=== PATIENT | male | born 1960 | race Caucasian/White ===

== ENCOUNTER 2021-12-13 16:12 | Inpatient (IN) | payer MEDICARE ==
[2021-12-13] MEDS ORDERED: SODIUM CHLORIDE 0.9% 1,000 ML IV STA ×2 (16:49→16:50)
--- NOTE | 2021-12-13 16:51 | ED Physician Documentation ---
History of Present Illness - Stated complaint Stated Complaint: UNABLE TO WALK/SHIVERS/BACK PX - Chief complaint Chief Complaint: General - Additonal information Additional information: 61-year-old male who has a history most significant for dementia comes to the emergency department for evaluation of intermittent fever for about 1 week as well as cough and right-sided back pain. This gentleman has a history of dementia that has resulted over the last 7 years as he has had at least 7 strokes. He moved to [facility] about 3 weeks ago from [place] so that his family could help care for him. His daughter at the bedside reports that they thought he had a little cold as he developed a cough once he arrived here. He has had no nausea or vomiting or diarrhea but he is gotten progressively weak. Daughter reports that he simply wants to sleep all the time. He has had fevers up to 101.5 at home and has complained of right- sided CVA and back pain. Past medical history is most significant for dementia and hyperlipidemia. Franky hughes denies any anticoagulation. No history of diabetes or hypertension. Daughter reports that he is a DNR. Patient's was at home and has multiple sclerosis is the decision maker Review of Systems Unable to obtain: Dementia, Other (History obtained from daughter) Constitutional: reports: Fever Musculoskeletal: reports: Back pain Neurologic: reports: Generalized weakness PD PAST MEDICAL HISTORY - Allergies Allergies/Adverse Reactions: Allergies Allergy/AdvReac Type Severity Reaction Status Date / Time No Known Drug Allergies Allergy Verified 12/13/21 16:39 PD ED PE EXPANDED - General General: Lethargic - Neck Neck: Supple w/out meningeal sx. No: Adenopathy - Cardiac Cardiac: Regular Rate, Radial strong equal, Pedal strong equal. No: Murmur Present - Respiratory Respiratory: Clear to ausultation deana. No: Distress, Labored - Abdomen Abdomen: Normal Bowel sounds. No: Tender to palpation - Derm Derm: Normal color - Neuro Neuro: Alert and Oriented X 3, CNII-XII intact - GCS Eye Opening: Spontaneous Motor: Obeys Commands Verbal: Oriented Total: 15 Results - Vitals Vitals: Vital Signs - 24 hr 12/13/21 12/13/21 12/13/21 16:34 18:21 19:22 Temperature 38.6 C H Heart Rate 119 H 107 H 97 Respiratory 16 25 H 35 H Rate Blood Pressure 104/64 99/65 103/67 O2 Saturation 95 95 95 Oxygen O2 Source Room air - EKG (time done) 1654 Rate: Rate (enter#) (102) Rhythm: Sinus tachycardia [place]amb[place]: Normal Intervals: Normal DC QRS: Normal Ischemia: Other (borderline repol abnormality) Compare to prior EKG: Old EKG unavailable Computer interpretation: Agree with computer - Labs Labs: Laboratory Tests 12/13/21 12/13/21 12/13/21 17:11 17:11 17:11 WBC 16.1 H RBC 3.58 L Hgb 10.8 L Hct 32.9 L MCV 91.9 MCH 30.2 MCHC 32.8 RDW 12.4 Plt Count 714 H MPV 8.7 Neut # (Auto) 14.2 H Lymph # (Auto) 0.5 L [place] # (Auto) 1.0 Eos # (Auto) 0.0 Baso # (Auto) 0.1 Absolute Nucleated RBC 0.00 Nucleated RBC % 0.0 Sodium 137 Potassium 3.7 Chloride 98 L Carbon Dioxide 28 Anion Gap 11.0 BUN 24 H Creatinine 0.7 Estimated GFR (MDRD) 114 Glucose 125 H Lactic Acid 1.5 Calcium 8.6 Total Bilirubin 0.4 AST 48 H ALT 99 H Alkaline Phosphatase 96 Total Protein 7.4 Albumin 2.5 L Globulin 4.9 H Albumin/Globulin Ratio 0.5 L Urine Color Urine Clarity Urine pH Ur Specific [place] Urine Protein Urine Glucose (UA) Urine Ketones Urine Occult Blood Urine Nitrite Urine Bilirubin Urine Urobilinogen Ur Leukocyte Esterase Urine RBC Urine WBC Ur Squamous Epith Cells Urine Bacteria Urine Casts Urine Mucus Urine Culture Comments SARS-CoV-2 (PCR) 12/13/21 12/13/21 18:20 18:31 WBC RBC Hgb Hct MCV MCH MCHC RDW Plt Count MPV Neut # (Auto) Lymph # (Auto) [place] # (Auto) Eos # (Auto) Baso # (Auto) Absolute Nucleated RBC Nucleated RBC % Sodium Potassium Chloride Carbon Dioxide Anion Gap BUN Creatinine Estimated GFR (MDRD) Glucose Lactic Acid Calcium Total Bilirubin AST ALT Alkaline Phosphatase Total Protein Albumin Globulin Albumin/Globulin Ratio Urine Color DARK YELLOW Urine Clarity HAZY Urine pH 6.0 Ur Specific [place] 1.020 Urine Protein TRACE Urine Glucose (UA) NEGATIVE Urine Ketones TRACE Urine Occult Blood NEGATIVE Urine Nitrite NEGATIVE Urine Bilirubin NEGATIVE Urine Urobilinogen 0.2 (NORMAL) Ur Leukocyte Esterase NEGATIVE Urine RBC 0-5 Urine WBC 0-3 Ur Squamous Epith Cells NONE SEEN Urine Bacteria None Seen Urine Casts 0-2 Course Granular Urine Mucus Few Strands Urine Culture Comments NOT INDICATED SARS-CoV-2 (PCR) DETECTED A - Rads (name of study) abd/pelvis CT Radiology: Final report received (Right lower lobe pulmonary infiltrate with consolidation and pleural effusion. Unremarkable noncontrast CT of the abdomen and pelvis) CT chest Radiology: Final report received (RLL pneumonia) PD MEDICAL DECISION MAKING - ED course Complexity details: reviewed results, re-evaluated patient, considered differential, d/w patient ED course: 61-year-old male presents emergency department for evaluation of 1 week intermittent fevers, increasing general weakness right-sided back pain. He does have a history of pretty significant dementia and moved to the [facility] 3 weeks ago to be with his family. On presentation he is febrile at 38.6 tachycardic at 120. He has soft but normal blood pressures. Blood cultures x2 are pending. He was administered 2 L of crystalloid. Subsequent CT imaging of the chest abdomen pelvis does reveal a right lower lobe pneumonia. He was initiated on ceftriaxone and azithromycin.His daughter indicates to me that he is a DNR though they are okay with IV fluids and antibiotics. Covid screen is pending 1824: I have spoken to Dr. Watson who agrees to accept the patient in admission - Sepsis Event Sepsis Onset Date: 12/13/21 Sepsis Onset Time: 16:41 Current Stage of Sepsis: Sepsis Initial Hypotension: Not hypotensive Possible source of Sepsis: Pulmonary Mental/Cognitive Status: Confused, Lethargic, Other (Baseline dementia) Peripheral Pulse Strength: 2+ Slightly Diminished Peripheral Pulse Location: Pedal Bedside ultrasound performed: No Departure - Departure Disposition: 64 [facility] DC/Xfer Clinical Impression: Sepsis Qualifiers: Sepsis type: sepsis due to unspecified organism Sepsis acute organ dysfunction status: without acute organ dysfunction Qualified Code(s): A41.9 - Sepsis, unspecified organism Right lower lobe pneumonia Qualifiers: Pneumonia type: due to unspecified organism Qualified Code(s): J18.9 - Pneumo oanh, unspecified organism
[2021-12-13 17:21] LABS: BASOPHILS # (AUTO) 0.1 10^3/uL (0.0-0.1); BASOPHILS % (AUTO) 0.4 %; EOSINOPHILS % (AUTO) 0.2 %; HCT - HEMATOCRIT 32.9 % (42.0-52.0); HGB - HEMOGLOBIN 10.8 g/dL (14.0-18.0); LYMPHOCYTES # (AUTO) 0.5 10^3/uL (1.5-3.5); LYMPHOCYTES % (AUTO) 3.3 %; MEAN CORPUSCULAR HEMOGLOBIN 30.2 pg (27.0-31.0); MEAN CORPUSCULAR HGB CONC 32.8 g/dL (32.0-36.0); MEAN CORPUSCULAR VOLUME 91.9 fL (80.0-94.0); MEAN PLATELET VOLUME 8.7 fL (7.4-11.4); MONOCYTES % (AUTO) 6.3 %; NEUTROPHILS # (AUTO) 14.2 10^3/uL (1.5-6.6); NEUTROPHILS % (AUTO) 88.4 %; PLT - PLATELET COUNT 714 10^3/uL (130-450); RED BLOOD COUNT 3.58 10^6/uL (4.70-6.10); RED CELL DISTRIBUTION WIDTH 12.4 % (12.0-15.0); WHITE BLOOD COUNT 16.1 x10^3/uL (4.8-10.8)
[2021-12-13 17:33] LABS: ALBUMIN 2.5 g/dL (3.2-5.5); ALBUMIN/GLOBULIN RATIO 0.5 (1.0-2.2); BILIRUBIN,TOTAL 0.4 mg/dL (0.2-1.0); CALCIUM 8.6 mg/dL (8.5-10.3); CREATININE 0.7 mg/dL (0.6-1.2); POTASSIUM 3.7 mmol/L (3.5-5.0); TOTAL PROTEIN 7.4 g/dL (6.7-8.2)
[2021-12-13] MEDS ORDERED: cefTRIAXone 1 GM in SODIUM CHLORIDE 0.9% MINIBAG 100 ML IV STA (17:56)
[2021-12-13] MEDS ORDERED: AZITHROMYCIN INJ 500 MG in SODIUM CHLORIDE 0.9% 250 ML IV STA (17:56)
[2021-12-13 18:26] LABS: BILIRUBIN,URINE NEGATIVE (NEGATIVE); GLUCOSE, URINE (UA) NEGATIVE (NEGATIVE); KETONES,URINE (UA) TRACE mg/dL (NEGATIVE); LEUKOCYTE ESTERASE, URINE NEGATIVE (NEGATIVE); NITRITE,URINE NEGATIVE (NEGATIVE); OCCULT BLOOD,URINE NEGATIVE (NEGATIVE); PROTEIN,URINE TRACE mg/dL (NEGATIVE); UROBILINOGEN,URINE 0.2 (NORMAL) E.U./dL (NORMAL)
[2021-12-13 18:28] LABS: CLARITY,URINE HAZY (CLEAR)
[2021-12-13 18:42] LABS: BACTERIA,URINE None Seen /HPF (None Seen); MUCUS,URINE Few Strands; RBC,URINE 0-5 /HPF (0-5); SQUAMOUS EPITHELIAL CELL,UR NONE SEEN (<= Few); WBC,URINE 0-3 /HPF (0-3)
--- NOTE | 2021-12-13 18:46 | CT Report ---
PROCEDURE: CT abdomen pelvis without contrast INDICATIONS: right flank pain, fevers, cough TECHNIQUE: Noncontrast 5 mm thick sections acquired from the diaphragms to the symphysis. 5 mm coronal and sagi ttal reformats were then performed. For radiation dose reduction, the following was used: automated exposure control, adjustment of mA and/or kV according to patient size. COMPARISON: None. FINDINGS: Image quality: Excellent. ABDOMEN: Lung bases: Left lower lobe pulmonary infiltrate with consolidation in pleural effusion noted. Left l chun base is clear. Solid organs: Liver and spleen are normal in size. Gallbladder unremarkable. Pancreas is normal in contours. No adrenal nodules. Kidneys are normal in size, without hydronephrosis or nephrolithiasi s. Peritoneum and bowel: Unenhanced bowel loops demonstrate normal wall thickness and caliber. No free fluid or air. Moderate to fecal debris noted throughout the colon . Nodes and vessels: No retroperitoneal or mesenteric adenopathy by size criteria. Aorta and inferior vena cava are normal in caliber. Miscellaneous: No ventral hernias. PELVIS: Genitourinary: Bladder wall thickness is normal. Miscellaneous: No inguinal hernias or adenopathy. Bones: No suspicious bony lesions. No vertebral body compression fractures. IMPRESSION: 1. Right lower lobe pulmonary infiltrate with consolidation and pleural effusion. 2. Unremarkable noncontrast CT of the abdomen and pelvis Reviewed by: Abelardo Bahena MD on 12/13/2021 5:44 PM SCOTT Approved by: Abelardo Bahena MD on 12/13/2021 5:44 PM AKDT Station ID: [id number]
--- NOTE | 2021-12-13 18:48 | CT Report ---
PROCEDURE: CT chest without contrast INDICATIONS: right flank pain; fevers TECHNIQUE: Noncontrast 1mm axial images were acquired from the pulmonary apices to the posterior costophrenic an gles. Axial 5 mm soft tissue kernel reconstructions were performed as well as 8 mm axial MIP and cor onal and sagittal 5 mm reformations. For radiation dose reduction, the following was used: automate d exposure control, adjustment of mA and/or kV according to patient size. COMPARISON: None FINDINGS: Image quality: Excellent. Lungs and pleura: Right lower lobe pulmonary infiltrate associated with consolidation and pleural eff usion extending into the minor fissure. Left lung and pleural spaces clear. Mediastinum: Heart size is normal. Dense atherosclerotic coronary artery vascular calcification pre sent. No pericardial effusion. Reactive but nonenlarged mediastinal lymph nodes present.. Thoracic a uzma and central pulmonary arteries are normal in size. Esophagus is normal in caliber. No hiatal h ernia. Bones and chest wall: No suspicious bony lesions. No vertebral body compression fractures. No axil ary or supraclavicular adenopathy by size criteria. The thyroid is normal in size and there are no incidental findings. Abdomen: Visualized upper abdominal solid organs and bowel loops appear normal in the absence of con trast. IMPRESSION: Right lower lobe pneumonia. Right lower lobe pulmonary infiltrate associated with consolidation and p leural effusion is consistent with pneumonia Reviewed by: Abelardo Bahena MD on 12/13/2021 5:46 PM AKMEET Approved by: Abelardo Bahena MD on 12/13/2021 5:46 PM AKDT Station ID: [id number]
[2021-12-13] MEDS ORDERED: ACETAMINOPHEN 325 MG TABLET PO PRN (19:45)
[2021-12-13] MEDS ORDERED: ONDANSETRON 4 MG/2 ML VIAL IVP PRN (19:45)
[2021-12-13] MEDS ORDERED: SODIUM CHLORIDE FLUSH 0.9% 10 ML SYRINGE IVP PRN (19:45)
[2021-12-13] MEDS ORDERED: HYDROcod/ACETAM 5/325 MG TABLET PO PRN (19:45)
--- NOTE | 2021-12-13 19:51 | HISTORY & PHYSICAL EXAMINATION ---
Chief Complaint - Chief Complaint Chief Complaint: cough and fever History of Present Illness - Admitted From Admitted From:: [facility] ED - History Obtained From Records Reviewed: yes History obtained from: patient's daughter Exam Limitations: dementia, confused - History of Present Illness HPI Comment/Other: Patient is 61-year-old male with medical history significant for dementia, hyperlipidemia and depression who presented to the ED with cough and chills. His symptoms started initially 3 weeks ago with a cold. He was evaluated and tested for COVID-19 at the time and was noted to be negative. However interm ittently he would spike fever at home as high as 101.4. This usually resolved with Tylenol and was intermittent so no further medical care was sought. Today with the patient's daughter returned home from work she noted he was shivering and complained of significant back pain. The patient requested to be brought to the hospital for evaluation. In the ED he had a temperature of 38.6 C. Further work-up included CBC which showed a white blood cell count of 16.1. He also had a chest x-ray done which showed right lower lobe pneumonia. Finally he tested positive for COVID. As a result he was presented for admission for further treatment. The patient recently moved to [facility] to live with his daughter from [place]. As a result of the dementia and current confusion this history was provided by his daughter. He is resting comfortably in bed. He is awake and alert and oriented to self mainly. He does not have chest pain, dyspnea, abdominal pain, nausea or vomiting. History - Past Medical History Cardiovascular: reports: High cholesterol Neuro: reports: Dementia Psych: reports: Depression - Past Surgical History Other past surgical history: No surgical history - Family & Social History Family History Comment/Other: Since parents had a significant history of alcohol abuse and cirrhosis. Living arrangement: At home Living Situation: With family Social History Notes: He recently moved from [place] to [facility] to live with his daughter. He chews tobacco. He does not consume alcohol or use recrea tional substances. - POLST Patient has POLST: No POLST Status: Full Code Meds/Allgy - Allergies Allergies/Adverse Reactions: Allergies Allergy/AdvReac Type Severity Reaction Status Date / Time No Known Drug Allergies Allergy Verified 12/13/21 16:39 Review of Systems - Constitutional Constitutional: reports: Fever, Chills, Poor appetite. denies: Fatigue - Eyes Eyes: denies: Vision loss, Dipolpia - Ears, Nose & Throat Ears, Nose & Throat: denies: Ear pain, Sore throat - Cardiovascular Cariovascular: denies: Irregular heart rate, Palpitations, Chest pain, Lightheadedness, Syncope, Exertional dyspnea - Respiratory Respiratory: reports: Cough. denies: Wheezing, SOB at rest, SOB with exertion - Gastrointestinal Gastrointestinal: denies: Abdominal pain, Abdominal distention, Constipation, Di arrhea, Nausea, Vomiting - Genitourinary Genitourinary: denies: Dysuria, Frequency, Urgency, Hematuria - Musculoskeletal Musculoskeletal: denies: Muscle pain, Back pain - Integumentary Integumentary: denies: Rash, Pruritis, Lesions, Dryness - Neurological Neurological: denies: General weakness, Focal weakness, Headache, Dizziness - Psychiatric Psychiatric: denies: Depression, Anxiety - Endocrine Endocrine: denies: Polyuria, Polydypsia - Hematologic/Lymphatic Hematologic/Lymphatic: denies: Anemia, Bruising, Petechiae Prior Level of Functionality: Patient requires some assistance and reminders about activities of daily living Without supervision he would often forget to eat or shower. Exam - Vital Signs Vital Signs: Vital Signs x48h Temp Pulse Resp BP Pulse Ox 12/13/21 19:22 97 35 H 103/67 95 12/13/21 18:21 107 H 25 H 99/65 95 12/13/21 16:34 38.6 C H 119 H 16 104/64 95 - Physical Exam General Appearance: positive: No acute distress, Alert, Other (awake but mainly oriented to self) Eyes Bilateral: positive: PERRL, EOMI ENT: positive: No signs of dehydration Neck: positive: No JVD, Trachea midline Respiratory: positive: Chest non-tender, No respiratory distress, Breath sounds nml Cardiovascular: positive: Regular rate & rhythm, No murmur Abdomen: positive: Non-tender, No organomegaly, Nml bowel sounds, No distention. negative: Guarding, Rebound Back: positive: Nml inspection Skin: positive: Color nml, No rash, Warm, Dry Extremities: positive: Non-tender, Full ROM, Nml appearance, No pedal edema Neurologic/Psychiatric: positive: Oriented x3, Mood/affect nml Sepsis Event Note (H) - Evaluation Possible source of Sepsis: positive: Pulmonary Conclusion/Plan - Problem List (1) Right lower lobe pneumonia Conclusion/Plan: CT chest shows right lower lobe pneumonia. WBC 16.1, temperature 38.6 C. Oxygen saturation 95% on room air. Blood cultures drawn. Patient started on Rocephin and azithromycin. Qualifiers: Pneumonia type: due to unspecified organism Qualified Code(s): J18.9 - Pneumonia, unspecified organism (2) COVID-19 Conclusion/Plan: Patient was positive for COVID-19. Oxygen saturation is 95% on room air. Respiratory rate 35. On Rocephin and azithromycin. Will order Decadron 6 mg IV daily. - Lab Results Fish Bones: 12/13/21 17:11 12/13/21 17:11 Core Measures - Anticipated LOS I expect patient to be DC'd or transferred within 96 hours.: Yes - DVT/VTE - Prophylaxis VTE/DVT Device ordered at admit?: Yes VTE/DVT Prophylaxis med ordered at admit?: Yes
[2021-12-14 05:21] LABS: BASOPHILS # (AUTO) 0.1 10^3/uL (0.0-0.1); BASOPHILS % (AUTO) 0.4 %; EOSINOPHILS % (AUTO) 0.3 %; HCT - HEMATOCRIT 31.1 % (42.0-52.0); LYMPHOCYTES # (AUTO) 0.8 10^3/uL (1.5-3.5); LYMPHOCYTES % (AUTO) 5.9 %; MEAN CORPUSCULAR HEMOGLOBIN 29.9 pg (27.0-31.0); MEAN CORPUSCULAR HGB CONC 32.2 g/dL (32.0-36.0); MEAN CORPUSCULAR VOLUME 92.8 fL (80.0-94.0); MEAN PLATELET VOLUME 8.8 fL (7.4-11.4); MONOCYTES # (AUTO) 1.2 10^3/uL (0.0-1.0); NEUTROPHILS # (AUTO) 11.2 10^3/uL (1.5-6.6); NEUTROPHILS % (AUTO) 83.3 %; PLT - PLATELET COUNT 629 10^3/uL (130-450); RED BLOOD COUNT 3.35 10^6/uL (4.70-6.10); RED CELL DISTRIBUTION WIDTH 12.7 % (12.0-15.0); WHITE BLOOD COUNT 13.5 x10^3/uL (4.8-10.8)
[2021-12-14 05:27] LABS: CALCIUM 8.1 mg/dL (8.5-10.3); CREATININE 0.6 mg/dL (0.6-1.2); POTASSIUM 3.7 mmol/L (3.5-5.0)
[2021-12-14] MEDS: SODIUM CHLORIDE FLUSH 0.9% 10 ML SYRINGE IVP SCH ×3 (05:37→18:08)
[2021-12-14] MEDS: cefTRIAXone 1 GM in SODIUM CHLORIDE 0.9% MINIBAG 100 ML IV SCH (09:35)
[2021-12-14] MEDS: DEXAMETHASONE 4 MG/ML VIAL IVP SCH (09:37)
[2021-12-14] MEDS: ENOXAPARIN 40 MG/0.4 ML SYRINGE SUBQ SCH (09:41)
[2021-12-14] MEDS ORDERED: SODIUM CHLORIDE 0.9% 1,000 ML IV SCH (10:00)
[2021-12-14] MEDS: AZITHROMYCIN INJ 500 MG in SODIUM CHLORIDE 0.9% 250 ML IV SCH (10:27)
--- NOTE | 2021-12-14 13:52 | PROVIDER PROGRESS NOTE ---
Assessment/Plan - Problem List (1) Sepsis Qualifiers: Sepsis type: sepsis due to unspecified organism Sepsis acute organ dysfunction status: without acute organ dysfunction Qualified Code(s): A41.9 - Sepsis, unspecified organism Assessment/Plan: He had tachycardia, elevated white blood count and fever. The white count has improved from 16-13 and he is no longer tachycardic and is afebrile. Continue to treat the underlying problem, the lobar pneumonia and treat COVID symptomatically (2) Right lower lobe pneumonia Conclusion/Plan: CT chest shows right lower lobe pneumonia. WBC was 16.1, temperature 38.6 C. Oxygen saturation 95% on room air. Blood cultures drawn. Continue patient on Rocephin and azithromycin. Qualifiers: Pneumonia type: due to unspecified organism Qualified Code(s): J18.9 - Pneumonia, unspecified organism (3) COVID-19 Conclusion/Plan: Patient was positive for COVID-19. Oxygen saturation is 95% on room air. Respiratory rate was 35 and has improved. He is on Decadron 6 mg IV daily. There are no qualifications to start Remdesivir since he is not desaturating (4) Dementia Conclusion/Plan: He does not know his medications, there is nothing it reconciled by pharmacy The daughter told his nurse that the patient eats very little and often pockets his food and pills in his cheek. He mostly just sits in his chair all day sleeps on and off all day. Will order a minced and moist diet and for the patient to be fed and fluids to be offered. He bladder scanned 566 ml and did not understand how to use a urinal. Will order to walk him to the BR for urination or BMs. We may consider PT and OT evaluations, but today he is very fatigued, possibly from his acute infection and the COVID, will let him sleep. - Current Meds Current Meds: Current Medications Generic Name Dose Route Start Last Admin Trade Name Freq PRN Reason Stop Dose Admin Dexamethasone 6 mg 12/14/21 09:00 12/14/21 09:37 Dexamethasone 4 Mg/Ml Vial IVP 12/22/21 09:01 6 mg DAILY PAT Administration Enoxaparin Sodium 40 mg 12/14/21 09:00 12/14/21 09:41 Enoxaparin 40 Mg/0.4 Ml Syringe SUBQ 40 mg DAILY PAT Administration Azithromycin 500 mg/ Sodium 250 mls @ 250 mls/hr 12/14/21 09:00 12/14/21 11:30 Chloride IV 12/15/21 09:59 Infused DAILY PAT Infusion Ceftriaxone Sodium 1 gm/ 100 mls @ 200 mls/hr 12/14/21 09:00 12/14/21 10:13 Sodium Chloride IV Infused DAILY PAT Infusion Sodium Chloride 1,000 mls @ 83.333 mls/hr 12/14/21 10:00 12/14/21 11:30 Normal Saline 0.9% IV 83.333 mls/hr .Q12H PAT Infusion Sodium Chloride 10 ml 12/14/21 01:00 12/14/21 09:37 Sodium Chloride Flush 0.9% 10 Ml Syringe IVP 10 ml 0100,0900,1700 PAT Administration - Lab Result Fish Bone Diagrams: 12/14/21 05:00 12/14/21 05:00 - Additional Planning My Orders: My Active Orders 12/14/21 10:00 Sodium Chloride 0.9% [Normal Saline 0.9%] 1,000 ml IV 83.333 mls/hr 12/14/21 13:48 Miscellaenous Nursing Order [RC] QSHIFT 12/14/21 Dinner DIET [Dysphagia - Minced and Moist] [DIET] Subjective - Subjective Patient Reports: Resting Comfortably Nursing Reports: Other (Needs to be fed, needs to be walked to bathroom, per RN) Objective Vital Signs: Vital Signs - 24 hr 12/13/21 12/13/21 12/13/21 16:34 18:21 19:22 Temperature 38.6 C H Heart Rate 119 H 107 H 97 Heart Rate [ Brachial] Respiratory 16 25 H 35 H Rate Blood Pressure 104/64 99/65 103/67 Blood Pressure [Left Brachial artery] O2 Saturation 95 95 95 12/13/21 12/13/21 12/14/21 20:30 21:00 00:00 Temperature 37.0 C 36.6 C Heart Rate 100 Heart Rate [ 65 62 Brachial] Respiratory 17 12 14 Rate Blood Pressure 102/70 Blood Pressure 105/61 104/59 L [Left Brachial artery] O2 Saturation 98 97 96 12/14/21 12/14/21 05:39 08:00 Temperature 36.4 C L 36.8 C Heart Rate Heart Rate [ 88 93 Brachial] Respiratory 32 H 22 Rate Blood Pressure Blood Pressure 108/61 94/57 L [Left Brachial artery] O2 Saturation 94 94 Oxygen O2 Source Room air I&O (Last 24 Hrs): Intake and Output Totals x24h 12/12/21 12/13/21 12/14/21 23:59 23:59 23:59 Intake Total 2350 350 Output Total 450 Balance 2350 -100 General: Other ((exam done remotely). He is lethargic but awakens to his name.) HEENT: Atraumatic Neck: Supple Neuro: Alert, Disoriented, Non Focal Cardiovascular: Regular rate Respiratory: No respiratory distress Abdomen: Soft Extremities: No edema - Results Results: Laboratory Results WBC 13.5 x10^3/uL (4.8-10.8) H 12/14/21 05:00 RBC 3.35 10^6/uL (4.70-6.10) L 12/14/21 05:00 Hgb 10.0 g/dL (14.0-18.0) L 12/14/21 05:00 Hct 31.1 % (42.0-52.0) L 12/14/21 05:00 MCV 92.8 fL (80.0-94.0) 12/14/21 05:00 MCH 29.9 pg (27.0-31.0) 12/14/21 05:00 MCHC 32.2 g/dL (32.0-36.0) 12/14/21 05:00 RDW 12.7 % (12.0-15.0) 12/14/21 05:00 Plt Count 629 10^3/uL (130-450) H 12/14/21 05:00 MPV 8.8 fL (7.4-11.4) 12/14/21 05:00 Neut # (Auto) 11.2 10^3/uL (1.5-6.6) H 12/14/21 05:00 Lymph # (Auto) 0.8 10^3/uL (1.5-3.5) L 12/14/21 05:00 [place] # (Auto) 1.2 10^3/uL (0.0-1.0) H 12/14/21 05:00 Eos # (Auto) 0.0 10^3/uL (0.0-0.7) 12/14/21 05:00 Baso # (Auto) 0.1 10^3/uL (0.0-0.1) 12/14/21 05:00 Absolute Nucleated RBC 0.00 x10^3/uL 12/14/21 05:00 Nucleated RBC % 0.0 /100WBC 12/14/21 05:00 Sodium 139 mmol/L (135-145) 12/14/21 05:00 Potassium 3.7 mmol/L (3.5-5.0) 12/14/21 05:00 Chloride 103 mmol/L (101-111) 12/14/21 05:00 Carbon Dioxide 26 mmol/L (21-32) 12/14/21 05:00 Anion Gap 10.0 (6-13) 12/14/21 05:00 BUN 17 mg/dL (6-20) 12/14/21 05:00 Creatinine 0.6 mg/dL (0.6-1.2) 12/14/21 05:00 Estimated GFR (MDRD) 136 (>89) 12/14/21 05:00 Glucose 117 mg/dL (70-100) H 12/14/21 05:00 Lactic Acid 1.5 mmol/L (0.5-2.2) 12/13/21 17:11 Calcium 8.1 mg/dL (8.5-10.3) L 12/14/21 05:00 Total Bilirubin 0.4 mg/dL (0.2-1.0) 12/13/21 17:11 AST 48 IU/L (10-42) H 12/13/21 17:11 ALT 99 IU/L (10-60) H 12/13/21 17:11 Alkaline Phosphatase 96 IU/L (42-121) 12/13/21 17:11 Total Protein 7.4 g/dL (6.7-8.2) 12/13/21 17:11 Albumin 2.5 g/dL (3.2-5.5) L 12/13/21 17:11 Globulin 4.9 g/dL (2.1-4.2) H 12/13/21 17:11 Albumin/Globulin Ratio 0.5 (1.0-2.2) L 12/13/21 17:11 Urine Color DARK YELLOW 12/13/21 18:20 Urine Clarity HAZY (CLEAR) 12/13/21 18:20 Urine pH 6.0 PH (5.0-7.5) 12/13/21 18:20 Ur Specific [place] 1.020 (1.002-1.030) 12/13/21 18:20 Urine Protein TRACE mg/dL (NEGATIVE) 12/13/21 18:20 Urine Glucose (UA) NEGATIVE mg/dL (NEGATIVE) 12/13/21 18:20 Urine Ketones TRACE mg/dL (NEGATIVE) 12/13/21 18:20 Urine Occult Blood NEGATIVE (NEGATIVE) 12/13/21 18:20 Urine Nitrite NEGATIVE (NEGATIVE) 12/13/21 18:20 Urine Bilirubin NEGATIVE (NEGATIVE) 12/13/21 18:20 Urine Urobilinogen 0.2 (NORMAL) E.U./dL (NORMAL) 12/13/21 18:20 Ur Leukocyte Esterase NEGATIVE (NEGATIVE) 12/13/21 18:20 Urine RBC 0-5 /HPF (0-5) 12/13/21 18:20 Urine WBC 0-3 /HPF (0-3) 12/13/21 18:20 Ur Squamous Epith Cells NONE SEEN (<= Few) 12/13/21 18:20 Urine Bacteria None Seen /HPF (None Seen) 12/13/21 18:20 Urine Casts 0-2 Hyaline Casts /LPF0-2 Course Granular /LPF 12/13/21 18:20 Urine Casts 0-2 Hyaline Casts /LPF0-2 Course Granular /LPF 12/13/21 18:20 Urine Mucus Few Strands 12/13/21 18:20 Urine Culture Comments NOT INDICATED 12/13/21 18:20 SARS-CoV-2 (PCR) DETECTED A 12/13/21 18:31 Sepsis Event Note (H) - Evaluation Possible source of Sepsis: positive: Pulmonary
[2021-12-15] MEDS: SODIUM CHLORIDE FLUSH 0.9% 10 ML SYRINGE IVP SCH ×3 (01:55→17:41)
[2021-12-15] MEDS: SODIUM CHLORIDE 0.9% 1,000 ML IV SCH ×2 (01:55→13:46)
[2021-12-15 05:06] LABS: BASOPHILS % (AUTO) 0.1 %; EOSINOPHILS % (AUTO) 0.2 %; HCT - HEMATOCRIT 28.4 % (42.0-52.0); HGB - HEMOGLOBIN 9.3 g/dL (14.0-18.0); LYMPHOCYTES % (AUTO) 7.9 %; MEAN CORPUSCULAR HEMOGLOBIN 30.1 pg (27.0-31.0); MEAN CORPUSCULAR HGB CONC 32.7 g/dL (32.0-36.0); MEAN CORPUSCULAR VOLUME 91.9 fL (80.0-94.0); MEAN PLATELET VOLUME 9.1 fL (7.4-11.4); MONOCYTES # (AUTO) 1.1 10^3/uL (0.0-1.0); MONOCYTES % (AUTO) 8.7 %; NEUTROPHILS # (AUTO) 10.2 10^3/uL (1.5-6.6); NEUTROPHILS % (AUTO) 81.9 %; PLT - PLATELET COUNT 586 10^3/uL (130-450); RED BLOOD COUNT 3.09 10^6/uL (4.70-6.10); RED CELL DISTRIBUTION WIDTH 12.6 % (12.0-15.0); WHITE BLOOD COUNT 12.5 x10^3/uL (4.8-10.8)
[2021-12-15 05:16] LABS: CREATININE 0.5 mg/dL (0.6-1.2); POTASSIUM 3.5 mmol/L (3.5-5.0)
[2021-12-15] MEDS: DEXAMETHASONE 4 MG/ML VIAL IVP SCH (08:36)
[2021-12-15] MEDS: cefTRIAXone 1 GM in SODIUM CHLORIDE 0.9% MINIBAG 100 ML IV SCH (08:43)
[2021-12-15] MEDS: AZITHROMYCIN INJ 500 MG in SODIUM CHLORIDE 0.9% 250 ML IV SCH (08:45)
--- NOTE | 2021-12-15 09:24 | PHARMACY PROGRESS NOTE ---
- Best Possible Medication History Admit Date and Time: 12/13/211944 Processed by: Pharmacy Medication History completed: Yes Patient Interview: Pt unable to participate Secondary Source(s): Written medication list, Other family member As the person ultimately responsible for medication therapy, providers are able to order a medication from an existing home medication list in [facility] via the "Reconcile Routine" prior to Confirmation of that medication by biomedical equipment support specialist. Such practice is discouraged except when the physician, in their clinical judgment, deems that a medical need exists for a medication without regard to previous use.
[2021-12-15] MEDS: ENOXAPARIN 40 MG/0.4 ML SYRINGE SUBQ SCH (10:25)
[2021-12-15] MEDS: RIVASTIGMINE 1.5 MG CAPSULE PO SCH ×2 (10:33→23:47)
--- NOTE | 2021-12-15 12:12 | PROVIDER PROGRESS NOTE ---
Assessment/Plan - Problem List (1) Right lower lobe pneumonia Qualifiers: Pneumonia type: due to unspecified organism Qualified Code(s): J18.9 - Pneumonia, unspecified organism Assessment/Plan: CT chest showed a right lower lobe pneumonia, WBC was 16.1, temperature 38.6 C. Oxygen saturation 95% on room air. Blood cultures were drawn and are neg to date. Continue patient on empiric iv Rocephin and azithromycin. (2) COVID-19 Conclusion/Plan: Patient was positive for COVID-19 in the ED. Oxygen saturation remains good on room air. Respiratory rate has improved. He is on Decadron 6 mg IV daily. There are no qualifications to start Remdesivir since he is not desaturating (3) Hypotension Conclusion/Plan: Blood pressure is low today, running about 90 systolic, despite having been on 2.5 days of iv fluids. But he has had poor po intake for many days, mostly sleep s (per daughter's report to his RN). Will increase IV rate from 83.33 cc/hr to 100 cc/hr Med list was reconciled today and he is not on any blood pressure medications. (4) Dementia with behavioral disturbances Conclusion/Plan: This morning, he was less lethargic and was able to walk to the bathroom, where he tried to punch his nurse and then wanted to punch the wall. I spoke to the daughter, Nicolle Scruggs, by phone today. She tells me that this patient with advanced dementia was taking care of his , who has multiple sclerosis, is bedbound and only has the use of her left arm. They lived in [place]. The patient drank unknown amounts of alcohol and chewed tobacco. When this patient was picked up by police for driving while intoxicated, a neighbor called Nicolle and said that her parents need caregiving. For this reason, the patient and his have been moved in to live with Nicolle and her , 3 weeks ago. He has no PCP yet. Yesterday the daughter told our RN that the patient mostly sleeps all day, occasionally needs to be fed or prompted to chew. Today the daughter told me about his rare agitation (bipolar mood swings) for which he is on treatment with Zoloft and Alonzopine ODT. We ordered a minced and moist diet and for the patient to be fed and fluids to be offered, if he needs. However today the patient is awake, not as sleepy, sat up in a chair to feed himself breakfast. Will restart his dementia treatment of rivastigmine using oral meds (we do not have the patch on formulary here and the daughter said he would tend to peel off the patch anyway). We may consider PT and OT evaluations. (5) Bipolar Conclusion/Plan: Today the daughter told me about his rare agitation (bipolar mood swings) for which he is on treatment with Zoloft and Alonzopine ODT. Will restart these. (6) Sepsis Conclusion/Plan: Resolved. He had tachycardia, elevated white blood count and fever. The white count has improved and he is no longer tachycardic and is afebrile. - Current Meds Current Meds: Current Medications Generic Name Dose Route Start Last Admin Trade Name Freq PRN Reason Stop Dose Admin Dexamethasone 6 mg 12/14/21 09:00 12/15/21 08:36 Dexamethasone 4 Mg/Ml Vial IVP 12/22/21 09:01 6 mg DAILY PAT Administration Enoxaparin Sodium 40 mg 12/14/21 09:00 12/15/21 10:25 Enoxaparin 40 Mg/0.4 Ml Syringe SUBQ Not Given DAILY PAT Ceftriaxone Sodium 1 gm/ 100 mls @ 200 mls/hr 12/14/21 09:00 12/15/21 09:33 Sodium Chloride IV Infused DAILY PAT Infusion Sodium Chloride 1,000 mls @ 100 mls/hr 12/15/21 01:22 12/15/21 10:33 Normal Saline 0.9% IV 100 mls/hr .Q10H PAT Infusion Rivastigmine Tartrate 1.5 mg 12/15/21 11:00 12/15/21 10:33 Rivastigmine 1.5 Mg Capsule PO 1.5 mg BID PAT Administration Sodium Chloride 10 ml 12/14/21 01:00 12/15/21 08:37 Sodium Chloride Flush 0.9% 10 Ml Syringe IVP 10 ml 0100,0900,1700 PAT Administration - Lab Result Fish Bone Diagrams: 12/15/21 04:35 12/15/21 04:35 - Additional Planning My Orders: My Active Orders 12/14/21 13:48 Miscellaenous Nursing Order [RC] QSHIFT 12/14/21 Dinner DIET [Dysphagia - Minced and Moist] [DIET] 12/15/21 09:08 Telemetry-Discontinue [RC] .ONCE 12/15/21 11:00 Rivastigmine [Exelon] 1.5 mg PO BID Subjective - Subjective Patient Reports: Resting Comfortably Nursing Reports: Other (He had more energy, pulled off his telemetry leads, and tried to punch his nurse.) Objective Vital Signs: Vital Signs - 24 hr 12/14/21 12/14/21 12/14/21 15:03 16:00 19:48 Temperature 36.8 C 36.5 C 36.4 C L Heart Rate 93 Heart Rate [ 73 98 Brachial] Respiratory 22 20 20 Rate Blood Pressure 88/58 L 81/45 L [Left Brachial artery] Blood Pressure [Right Brachial artery] O2 Saturation 94 93 95 12/14/21 12/15/21 12/15/21 23:46 08:00 08:34 Temperature 36.4 C L Heart Rate Heart Rate [ 76 74 Brachial] Respiratory 24 20 Rate Blood Pressure 92/50 L [Left Brachial artery] Blood Pressure 86/51 L 90/56 L [Right Brachial artery] O2 Saturation 95 95 12/15/21 08:35 Temperature 36.4 C L Heart Rate Heart Rate [ Brachial] Respiratory Rate Blood Pressure [Left Brachial artery] Blood Pressure [Right Brachial artery] O2 Saturation Oxygen O2 Source Room air I&O (Last 24 Hrs): Intake and Output Totals x24h 12/13/21 12/14/21 12/15/21 23:59 23:59 23:59 Intake Total 2350 510 2271.667 Output Total 450 Balance 2350 60 2271.667 General: Alert ((exam done remotely)) HEENT: Mucous membr. moist/pink Neck: Supple Neuro: Alert, Other (Poor memory) Cardiovascular: Regular rate Respiratory: No respiratory distress Abdomen: Soft Extremities: No edema - Results Results: Laboratory Results WBC 12.5 x10^3/uL (4.8-10.8) H 12/15/21 04:35 RBC 3.09 10^6/uL (4.70-6.10) L 12/15/21 04:35 Hgb 9.3 g/dL (14.0-18.0) L 12/15/21 04:35 Hct 28.4 % (42.0-52.0) L 12/15/21 04:35 MCV 91.9 fL (80.0-94.0) 12/15/21 04:35 MCH 30.1 pg (27.0-31.0) 12/15/21 04:35 MCHC 32.7 g/dL (32.0-36.0) 12/15/21 04:35 RDW 12.6 % (12.0-15.0) 12/15/21 04:35 Plt Count 586 10^3/uL (130-450) H 12/15/21 04:35 MPV 9.1 fL (7.4-11.4) 12/15/21 04:35 Neut # (Auto) 10.2 10^3/uL (1.5-6.6) H 12/15/21 04:35 Lymph # (Auto) 1.0 10^3/uL (1.5-3.5) L 12/15/21 04:35 [place] # (Auto) 1.1 10^3/uL (0.0-1.0) H 12/15/21 04:35 Eos # (Auto) 0.0 10^3/uL (0.0-0.7) 12/15/21 04:35 Baso # (Auto) 0.0 10^3/uL (0.0-0.1) 12/15/21 04:35 Absolute Nucleated RBC 0.00 x10^3/uL 12/15/21 04:35 Nucleated RBC % 0.0 /100WBC 12/15/21 04:35 Sodium 139 mmol/L (135-145) 12/15/21 04:35 Potassium 3.5 mmol/L (3.5-5.0) 12/15/21 04:35 Chloride 105 mmol/L (101-111) 12/15/21 04:35 Carbon Dioxide 25 mmol/L (21-32) 12/15/21 04:35 Anion Gap 9.0 (6-13) 12/15/21 04:35 BUN 18 mg/dL (6-20) 12/15/21 04:35 Creatinine 0.5 mg/dL (0.6-1.2) L 12/15/21 04:35 Estimated GFR (MDRD) 168 (>89) 12/15/21 04:35 Glucose 124 mg/dL (70-100) H 12/15/21 04:35 Lactic Acid 1.5 mmol/L (0.5-2.2) 12/13/21 17:11 Calcium 8.0 mg/dL (8.5-10.3) L 12/15/21 04:35 Magnesium 2.1 mg/dL (1.7-2.8) 12/15/21 04:35 Total Bilirubin 0.4 mg/dL (0.2-1.0) 12/13/21 17:11 AST 48 IU/L (10-42) H 12/13/21 17:11 ALT 99 IU/L (10-60) H 12/13/21 17:11 Alkaline Phosphatase 96 IU/L (42-121) 12/13/21 17:11 Total Protein 7.4 g/dL (6.7-8.2) 12/13/21 17:11 Albumin 2.5 g/dL (3.2-5.5) L 12/13/21 17:11 Globulin 4.9 g/dL (2.1-4.2) H 12/13/21 17:11 Albumin/Globulin Ratio 0.5 (1.0-2.2) L 12/13/21 17:11 Urine Color DARK YELLOW 12/13/21 18:20 Urine Clarity HAZY (CLEAR) 12/13/21 18:20 Urine pH 6.0 PH (5.0-7.5) 12/13/21 18:20 Ur Specific [place] 1.020 (1.002-1.030) 12/13/21 18:20 Urine Protein TRACE mg/dL (NEGATIVE) 12/13/21 18:20 Urine Glucose (UA) NEGATIVE mg/dL (NEGATIVE) 12/13/21 18:20 Urine Ketones TRACE mg/dL (NEGATIVE) 12/13/21 18:20 Urine Occult Blood NEGATIVE (NEGATIVE) 12/13/21 18:20 Urine Nitrite NEGATIVE (NEGATIVE) 12/13/21 18:20 Urine Bilirubin NEGATIVE (NEGATIVE) 12/13/21 18:20 Urine Urobilinogen 0.2 (NORMAL) E.U./dL (NORMAL) 12/13/21 18:20 Ur Leukocyte Esterase NEGATIVE (NEGATIVE) 12/13/21 18:20 Urine RBC 0-5 /HPF (0-5) 12/13/21 18:20 Urine WBC 0-3 /HPF (0-3) 12/13/21 18:20 Ur Squamous Epith Cells NONE SEEN (<= Few) 12/13/21 18:20 Urine Bacteria None Seen /HPF (None Seen) 12/13/21 18:20 Urine Casts 0-2 Hyaline Casts /LPF0-2 Course Granular /LPF 12/13/21 18:20 Urine Casts 0-2 Hyaline Casts /LPF0-2 Course Granular /LPF 12/13/21 18:20 Urine Mucus Few Strands 12/13/21 18:20 Urine Culture Comments NOT INDICATED 12/13/21 18:20 SARS-CoV-2 (PCR) DETECTED A 12/13/21 18:31 Sepsis Event Note (H) - Evaluation Possible source of Sepsis: positive: Pulmonary
--- NOTE | 2021-12-15 13:28 | ADVANCE CARE PLANNING NOTE ---
Advance Care Planning - Planning Encounter Date: 12/15/21 Time: 13:15 Purpose: To establish CODE BLUE status Parties in Attendance: I spoke to the patient's by phone and daughter, Nicolle, all on speaker phone. Decisional Capacity of the Patient: He has advanced dementia, and cannot make any decisions for himself. 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 - Encounter Subjective/Patient's Story: The patient lived with his until recently in [place]. He drank unknown amounts of alcohol, and chewed tobacco daily. Patient has a history of dementia and has been on meds for dementia with behavioral disturbances that cause bipolar symptoms. Several weeks ago he was arrested for driving while intoxicated. A friend of the family called his daughter who lives here on [facility] [address], and reported that the parents need caregiving. 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 The daughter has brought both parents to live with her and her in their house. They have lived with [facility] for 3 weeks now. The daughter describes that she stopped the fsther from having any further alcohol use and any chewing tobacco "cold turkey". The daughter reports that approximately once a month the father is aggressive and agitated. Overall his current medications keep him stable however. Objective/Medical Story: Patient lives in his daughter's house on [facility], moved here along with his . He has had weakness, intermittent fevers and malaise for about 3 weeks. Because of continued weakness and worsening confusion, he was brought to the emergency room. He has been diagnosed with positive COVID and a lobar pneumonia. He was very obtunded on presentation, he is started to get IV fluids and treatment with antibiotics. He has minimal COVID symptoms, is not desaturating and chest x-ray does not show any opacities. Today he is more alert, was able to walk to the bathroom and is being aggressive, tried to punch his nurse and then tried to punch the wall. Goals of Care: Comfort is the primary goal. The said that she wants everything done. But after we discussed what CPR, defibrillation and a ventilator entails, the 's dated that she wants him to be a DNR/DNI. Plan: Will change CODE STATUS from full code to DNR/DNI. Code Status: Do Not Attempt Resuscitation Time spent on advance care plannin min
[2021-12-15] MEDS: SERTRALINE 50 MG TABLET PO SCH (13:46)
[2021-12-15] MEDS: DIVALPROEX DR 125 MG TABLET PO SCH (23:47)
[2021-12-15] MEDS: ATORVASTATIN 10 MG TABLET PO SCH (23:48)
[2021-12-15] MEDS: OLANZapine ODT 5 MG TABLET TL SCH (23:48)
[2021-12-16] MEDS: SODIUM CHLORIDE FLUSH 0.9% 10 ML SYRINGE IVP SCH ×3 (04:52→16:25)
[2021-12-16] MEDS: SODIUM CHLORIDE 0.9% 1,000 ML IV SCH ×3 (04:52→16:25)
[2021-12-16 05:27] LABS: BASOPHILS % (AUTO) 0.2 %; EOSINOPHILS % (AUTO) 0.3 %; HCT - HEMATOCRIT 26.5 % (42.0-52.0); HGB - HEMOGLOBIN 8.7 g/dL (14.0-18.0); LYMPHOCYTES # (AUTO) 1.4 10^3/uL (1.5-3.5); LYMPHOCYTES % (AUTO) 10.9 %; MEAN CORPUSCULAR HEMOGLOBIN 30.2 pg (27.0-31.0); MEAN CORPUSCULAR HGB CONC 32.8 g/dL (32.0-36.0); MONOCYTES % (AUTO) 7.6 %; NEUTROPHILS # (AUTO) 10.2 10^3/uL (1.5-6.6); PLT - PLATELET COUNT 535 10^3/uL (130-450); RED BLOOD COUNT 2.88 10^6/uL (4.70-6.10); RED CELL DISTRIBUTION WIDTH 12.7 % (12.0-15.0); WHITE BLOOD COUNT 12.8 x10^3/uL (4.8-10.8)
[2021-12-16 05:35] LABS: CALCIUM 7.8 mg/dL (8.5-10.3); CREATININE 0.6 mg/dL (0.6-1.2); POTASSIUM 3.6 mmol/L (3.5-5.0)
[2021-12-16] MEDS: DEXAMETHASONE 4 MG/ML VIAL IVP SCH (08:50)
[2021-12-16] MEDS: DIVALPROEX DR 125 MG TABLET PO SCH ×2 (08:54→20:02)
[2021-12-16] MEDS: RIVASTIGMINE 1.5 MG CAPSULE PO SCH ×2 (08:55→20:02)
[2021-12-16] MEDS: SERTRALINE 50 MG TABLET PO SCH (08:55)
[2021-12-16] MEDS: CYANOCOBALAMIN 500 MCG TABLET PO SCH (08:55)
[2021-12-16] MEDS: MULTIVITAMIN TABLET PO SCH (08:55)
[2021-12-16] MEDS: FOLIC ACID 1 MG TABLET PO SCH (08:55)
[2021-12-16] MEDS: cefTRIAXone 1 GM in SODIUM CHLORIDE 0.9% MINIBAG 100 ML IV SCH (09:09)
[2021-12-16] MEDS: ENOXAPARIN 40 MG/0.4 ML SYRINGE SUBQ SCH (09:12)
--- NOTE | 2021-12-16 12:50 | PROVIDER PROGRESS NOTE ---
Assessment/Plan - Problem List (1) Right lower lobe pneumonia Qualifiers: Pneumonia type: due to unspecified organism Qualified Code(s): J18.9 - Pneumonia, unspecified organism Assessment/Plan: CT chest showed a right lower lobe pneumonia, WBC was 16.1, temperature 38.6 C. Oxygen saturation 95% on room air. Blood cultures were drawn and are neg to date. With starting empiric antibiotics, he has become much more awake and alert. Continue patient on empiric iv Rocephin and azithromycin. (2) COVID-19 Conclusion/Plan: Patient was positive for COVID-19 in the ED. Oxygen saturation remains good on room air. Respiratory rate is stable. He is on Decadron 6 mg IV daily. There are no qualifications to start Remdesivir since he is not desaturating (3) Hypotension Conclusion/Plan: His Blood pressure is low (90's systpolic) intermittently, despite having been on 3.5 days of iv fluids. But he has had poor po intake for many days, mostly slept (per daughter's report to his RN). Med list was reconciled and he is not on any medications that would drop BP. We increased the IV rate from 83.33 cc/hr to 100 cc/hr yesterday and will continue with this (4) Dementia with behavioral disturbances Conclusion/Plan: Yesterday he was less lethargic and was able to walk to the bathroom, where he tried to punch his nurse and then wanted to punch the wall. Today he is able to feed himself without being "reminded to chew" and is not aggressive or agitated. Yesterday I spoke to the daughter, Nicolle Scruggs, by phone and she told me that t his patient with advanced dementia was taking care of his . The has multiple sclerosis, is bedbound and only has the use of her left arm. They lived in [place]. The patient drank unknown amounts of alcohol and chewed tobacco. When this patient was picked up by police for driving while int oxicated, a neighbor or friend called Nicolle and said that her parents need caregiving. For this reason, the patient and his have been moved in to live with Nicolle and her , 3 weeks ago. He has no PCP yet. Yesterday the daughter told our RN that the patient mostly sleeps all day, occasionally needs to be fed or prompted to chew. Today the daughter told me about his rare agitation (bipolar mood swings) for which he is on treatment with Zoloft and Alonzopine ODT. We ordered a minced and moist diet and for the patient to be fed and fluids to be offered, if he needs. However today the patient is awake, not as sleepy, sat up in a chair to feed himself breakfast. Will restart his dementia treatment of rivastigmine using oral meds (we do not have the patch on formulary here and the daughter said he would tend to peel off the patch anyway). We will order PT and OT evaluations. (5) Bipolar Conclusion/Plan: The daughter told me about his rare agitation (bipolar mood swings) for which he is on treatment with Zoloft and Alonzopine ODT. We restarted these. (6) Sepsis Conclusion/Plan: Resolved. He had tachycardia, elevated white blood count and fever. The white count has improved and he is no longer tachycardic and is afebrile. - Current Meds Current Meds: Current Medications Generic Name Dose Route Start Last Admin Trade Name Freq PRN Reason Stop Dose Admin Atorvastatin Calcium 10 mg 12/15/21 21:00 12/15/21 23:48 Atorvastatin 10 Mg Tablet PO 10 mg HS PAT Administration Cyanocobalamin 1,000 mcg 12/16/21 09:00 12/16/21 08:55 Cyanocobalamin 500 Mcg Tablet PO 1,000 mcg DAILY PAT Administration Dexamethasone 6 mg 12/14/21 09:00 12/16/21 08:50 Dexamethasone 4 Mg/Ml Vial IVP 12/22/21 09:01 6 mg DAILY PAT Administration Divalproex Sodium 250 mg 12/15/21 21:00 12/16/21 08:[address] 125 Mg Tablet PO 250 mg BID PAT Administration Enoxaparin Sodium 40 mg 12/14/21 09:00 12/16/21 09:12 Enoxaparin 40 Mg/0.4 Ml Syringe SUBQ 40 mg DAILY PAT Administration Folic Acid 1 mg 12/16/21 09:00 12/16/21 08:55 Folic Acid 1 Mg Tablet PO Not Given DAILY PAT Ceftriaxone Sodium 1 gm/ 100 mls @ 200 mls/hr 12/14/21 09:00 12/16/21 09:55 Sodium Chloride IV Infused DAILY PAT Infusion Sodium Chloride 1,000 mls @ 100 mls/hr 12/15/21 01:22 12/16/21 11:59 Normal Saline 0.9% IV 100 mls/hr .Q10H PAT Infusion Multivitamins 1 tab 12/16/21 09:00 12/16/21 08:55 Multivitamin Tablet PO 1 tab DAILY PAT Administration Olanzapine 10 mg 12/15/21 21:00 12/15/21 23:48 Olanzapine Odt 5 Mg Tablet TL 10 mg HS PAT Administration Rivastigmine Tartrate 1.5 mg 12/15/21 11:00 12/16/21 08:55 Rivastigmine 1.5 Mg Capsule PO 1.5 mg BID PAT Administration Sertraline HCl 50 mg 12/15/21 13:00 12/16/21 08:55 Sertraline 50 Mg Tablet PO 50 mg DAILY PAT Administration Sodium Chloride 10 ml 12/14/21 01:00 12/16/21 09:08 Sodium Chloride Flush 0.9% 10 Ml Syringe IVP 10 ml 0100,0900,1700 PAT Administration - Lab Result Fish Bone Diagrams: 12/16/21 04:54 12/16/21 04:54 - Additional Planning My Orders: My Active Orders 12/15/21 13:00 Sertraline [Zoloft] 50 mg PO DAILY 12/15/21 21:00 Atorvastatin [Lipitor] 10 mg PO HS Divalproex Dr [Depakote Dr] 250 mg PO BID OLANZapine ODT [ZyPREXA ODT] 10 mg TL HS 12/16/21 Evaluate and Treat OT [OT] Routine Evaluate and Treat PT [PT] Routine 12/16/21 09:00 Cyanocobalamin [Vitamin B-12] 1,000 mcg PO DAILY Folic Acid 1 mg PO DAILY Multivitamin [Theragran] 1 tab PO DAILY 12/17/21 05:00 FOLATE [IAI] DAILYLAB IRON TIBC PANEL [CHEM] DAILYLAB VITAMIN B12 [IAI] DAILYLAB Subjective - Subjective Patient Reports: No Complaints Nursing Reports: Other (RN reports that he is much more cooperative, less agitated, no disturbing behaviors, was able to joke with his RN and is sitting up for eating and is feeding himself) Objective Vital Signs: Vital Signs - 24 hr 0612/16/21 12/16/21 17:03 00:00 08:00 Temperature 36.2 C L 36.3 C L 36.3 C L Heart Rate [ 85 72 60 Brachial] Respiratory 17 20 18 Rate Blood Pressure 135/74 H 95/60 90/58 L [Right Brachial artery] O2 Saturation 93 95 98 Oxygen O2 Source Room air I&O (Last 24 Hrs): Intake and Output Totals x24h 12/14/21 12/15/21 12/16/21 23:59 23:59 23:59 Intake Total 510 4700.000 1065.000 Output Total 450 Balance 60 4700.000 1065.000 General: Alert ((exam done remotely)), No acute distress HEENT: Atraumatic, Mucous membr. moist/pink Neck: Supple Neuro: Alert, Disoriented, Non Focal Cardiovascular: Regular rate Respiratory: No respiratory distress Abdomen: Soft Extremities: No edema - Results Results: Laboratory Results WBC 12.8 x10^3/uL (4.8-10.8) H 12/16/21 04:54 RBC 2.88 10^6/uL (4.70-6.10) L 12/16/21 04:54 Hgb 8.7 g/dL (14.0-18.0) L 12/16/21 04:54 Hct 26.5 % (42.0-52.0) L 12/16/21 04:54 MCV 92.0 fL (80.0-94.0) 12/16/21 04:54 MCH 30.2 pg (27.0-31.0) 12/16/21 04:54 MCHC 32.8 g/dL (32.0-36.0) 12/16/21 04:54 RDW 12.7 % (12.0-15.0) 12/16/21 04:54 Plt Count 535 10^3/uL (130-450) H 12/16/21 04:54 MPV 9.0 fL (7.4-11.4) 12/16/21 04:54 Neut # (Auto) 10.2 10^3/uL (1.5-6.6) H 12/16/21 04:54 Lymph # (Auto) 1.4 10^3/uL (1.5-3.5) L 12/16/21 04:54 [place] # (Auto) 1.0 10^3/uL (0.0-1.0) 12/16/21 04:54 Eos # (Auto) 0.0 10^3/uL (0.0-0.7) 12/16/21 04:54 Baso # (Auto) 0.0 10^3/uL (0.0-0.1) 12/16/21 04:54 Absolute Nucleated RBC 0.00 x10^3/uL 12/16/21 04:54 Nucleated RBC % 0.0 /100WBC 12/16/21 04:54 Sodium 140 mmol/L (135-145) 12/16/21 04:54 Potassium 3.6 mmol/L (3.5-5.0) 12/16/21 04:54 Chloride 108 mmol/L (101-111) 12/16/21 04:54 Carbon Dioxide 26 mmol/L (21-32) 12/16/21 04:54 Anion Gap 6.0 (6-13) 12/16/21 04:54 BUN 18 mg/dL (6-20) 12/16/21 04:54 Creatinine 0.6 mg/dL (0.6-1.2) 12/16/21 04:54 Estimated GFR (MDRD) 136 (>89) 12/16/21 04:54 Glucose 130 mg/dL (70-100) H 12/16/21 04:54 Lactic Acid 1.5 mmol/L (0.5-2.2) 12/13/21 17:11 Calcium 7.8 mg/dL (8.5-10.3) L 12/16/21 04:54 Magnesium 2.1 mg/dL (1.7-2.8) 12/15/21 04:35 Total Bilirubin 0.4 mg/dL (0.2-1.0) 12/13/21 17:11 AST 48 IU/L (10-42) H 12/13/21 17:11 ALT 99 IU/L (10-60) H 12/13/21 17:11 Alkaline Phosphatase 96 IU/L (42-121) 12/13/21 17:11 Total Protein 7.4 g/dL (6.7-8.2) 12/13/21 17:11 Albumin 2.5 g/dL (3.2-5.5) L 12/13/21 17:11 Globulin 4.9 g/dL (2.1-4.2) H 12/13/21 17:11 Albumin/Globulin Ratio 0.5 (1.0-2.2) L 12/13/21 17:11 Urine Color DARK YELLOW 12/13/21 18:20 Urine Clarity HAZY (CLEAR) 12/13/21 18:20 Urine pH 6.0 PH (5.0-7.5) 12/13/21 18:20 Ur Specific [place] 1.020 (1.002-1.030) 12/13/21 18:20 Urine Protein TRACE mg/dL (NEGATIVE) 12/13/21 18:20 Urine Glucose (UA) NEGATIVE mg/dL (NEGATIVE) 12/13/21 18:20 Urine Ketones TRACE mg/dL (NEGATIVE) 12/13/21 18:20 Urine Occult Blood NEGATIVE (NEGATIVE) 12/13/21 18:20 Urine Nitrite NEGATIVE (NEGATIVE) 12/13/21 18:20 Urine Bilirubin NEGATIVE (NEGATIVE) 12/13/21 18:20 Urine Urobilinogen 0.2 (NORMAL) E.U./dL (NORMAL) 12/13/21 18:20 Ur Leukocyte Esterase NEGATIVE (NEGATIVE) 12/13/21 18:20 Urine RBC 0-5 /HPF (0-5) 12/13/21 18:20 Urine WBC 0-3 /HPF (0-3) 12/13/21 18:20 Ur Squamous Epith Cells NONE SEEN (<= Few) 12/13/21 18:20 Urine Bacteria None Seen /HPF (None Seen) 12/13/21 18:20 Urine Casts 0-2 Hyaline Casts /LPF0-2 Course Granular /LPF 12/13/21 18:20 Urine Casts 0-2 Hyaline Casts /LPF0-2 Course Granular /LPF 12/13/21 18:20 Urine Mucus Few Strands 12/13/21 18:20 Urine Culture Comments NOT INDICATED 12/13/21 18:20 SARS-CoV-2 (PCR) DETECTED A 12/13/21 18:31 Sepsis Event Note (H) - Evaluation Possible source of Sepsis: positive: Pulmonary
[2021-12-16] MEDS: OLANZapine ODT 5 MG TABLET TL SCH (20:02)
[2021-12-16] MEDS: ATORVASTATIN 10 MG TABLET PO SCH (20:02)
[2021-12-17] MEDS: SODIUM CHLORIDE FLUSH 0.9% 10 ML SYRINGE IVP SCH ×3 (01:00→16:02)
[2021-12-17] MEDS: SODIUM CHLORIDE 0.9% 1,000 ML IV SCH ×2 (02:10→15:20)
[2021-12-17 05:13] LABS: BASOPHILS % (AUTO) 0.1 %; EOSINOPHILS % (AUTO) 0.1 %; HCT - HEMATOCRIT 27.3 % (42.0-52.0); HGB - HEMOGLOBIN 8.7 g/dL (14.0-18.0); LYMPHOCYTES # (AUTO) 1.4 10^3/uL (1.5-3.5); LYMPHOCYTES % (AUTO) 14.2 %; MEAN CORPUSCULAR HEMOGLOBIN 29.8 pg (27.0-31.0); MEAN CORPUSCULAR HGB CONC 31.9 g/dL (32.0-36.0); MEAN CORPUSCULAR VOLUME 93.5 fL (80.0-94.0); MEAN PLATELET VOLUME 8.9 fL (7.4-11.4); MONOCYTES % (AUTO) 9.7 %; NEUTROPHILS # (AUTO) 7.5 10^3/uL (1.5-6.6); NEUTROPHILS % (AUTO) 74.1 %; PLT - PLATELET COUNT 515 10^3/uL (130-450); RED BLOOD COUNT 2.92 10^6/uL (4.70-6.10); RED CELL DISTRIBUTION WIDTH 12.6 % (12.0-15.0); WHITE BLOOD COUNT 10.1 x10^3/uL (4.8-10.8)
[2021-12-17 05:38] LABS: CALCIUM 7.8 mg/dL (8.5-10.3); CREATININE 0.5 mg/dL (0.6-1.2); POTASSIUM 3.9 mmol/L (3.5-5.0)
[2021-12-17 05:52] LABS: FOLATE 12.71 ng/mL (5.90 - >24.8)
[2021-12-17] MEDS: cefTRIAXone 1 GM in SODIUM CHLORIDE 0.9% MINIBAG 100 ML IV SCH (09:10)
[2021-12-17] MEDS: ENOXAPARIN 40 MG/0.4 ML SYRINGE SUBQ SCH (09:15)
[2021-12-17] MEDS: DEXAMETHASONE 4 MG/ML VIAL IVP SCH (09:16)
[2021-12-17] MEDS: DIVALPROEX DR 125 MG TABLET PO SCH (09:16)
[2021-12-17] MEDS: CYANOCOBALAMIN 500 MCG TABLET PO SCH (09:16)
[2021-12-17] MEDS: SERTRALINE 50 MG TABLET PO SCH (09:17)
[2021-12-17] MEDS: FOLIC ACID 1 MG TABLET PO SCH (09:17)
[2021-12-17] MEDS: RIVASTIGMINE 1.5 MG CAPSULE PO SCH (09:17)
[2021-12-17] MEDS: MULTIVITAMIN TABLET PO SCH (09:17)
[2021-12-17] MEDS ORDERED: MIDODRINE 2.5 MG TABLET PO ONE (14:57)
--- NOTE | 2021-12-17 15:04 | DISCHARGE SUMMARY ---
Discharge Summary Admit Date: 12/13/21 Discharge Date: 12/17/21 Discharging Provider: Dr. Mcdonald Code Status: Do Not Attempt Resuscitation Condition at Discharge: Good Discharge Disposition: Home Health Service - DIAGNOSES Admission Diagnoses: (1) Right lower lobe pneumonia (2) COVID-19 (3) Sepsis (present on admission). Discharge Diagnoses with Status of Each Condition: (1) Right lower lobe pneumonia---resolving (2) COVID-19--improved (3) Hypotension--Stable (4) Dementia with behavioral disturbances--stable (5) Bipolar--Stable (6) Sepsis--Resolved. (7) Iron Deficiency Anemia--Stable - HPI History of Present Illness: Patient is 61-year-old male with medical history significant for dementia, hyperlipidemia and depression who presented to the ED with cough and chills. His symptoms started initially 3 weeks ago with a cold. He was evaluated and tested for COVID-19 at the time and was noted to be negative. However intermittently he would spike fever at home as high as 101.4. This usually resolved with Tylenol and was intermittent so no further medical care was sought. Today with the patient's daughter returned home from work she noted he was shivering and complained of significant back pain. The patient requested to be brought to the hospital for evaluation. In the ED he had a temperature of 38.6 C. Further work-up included CBC which showed a white blood cell count of 16.1. He also had a chest x-ray done which showed right lower lobe pneumonia. Finally he tested positive for COVID. As a result he was presented for admission for further treatment. The patient recently moved to [facility] to live with his daughter from [place]. As a result of the dementia and current confusion this history was provided by his daughter. He is resting comfortably in bed. He is awake and alert and oriented to self mainly. He does not have chest pain, dyspnea, abdominal pain, nausea or vomiting. - HOSPITAL COURSE Hospital Course: Patient was managed with IV antibiotics for his community-acquired pneumonia and received 3-day course of azithromycin and up to 5 days of Rocephin. Patient has underlying vascular dementia at baseline for which PT/OT had worked with patient throughout hospitalization with deficiencies in his ADLs and total assistance for which patient remains alert and oriented x1 and again with baseline deficiencies of ADLs for which she will receive home health services. Patient's hypotension was related to his hydration issue which has been ongoing at home setting and will have patient's caregiver-daughter to improve his hydration status at home. Patient was found to have iron deficiency anemia with no bleeding events and hemoglobin down trended from 10.8 to 8.7 g/dL upon discharge with decreased serum iron and percent iron saturation for which he will be prescribed ferrous sulfate. Patient will also be prescribed 2 more days of antibiotics with Omnicef plus doxycycline due to his increase risk of residual infection in the setting of his commune acquired pneumonia and underlying sepsis which has now been resolved. Patient's leukocytosis has also been resolved despite receiving up to 4 days of Decadron and remained not hypoxemic in the setting of his COVID infection. His right lower lobe pneumonia will be addressed with Omnicef plus doxycycline for 2 more days. Ongoing need for home health services as outpatient. Will resume patient's home medications which may be influencing his hypotension as outpatient. Patient may need midodrine as needed as outpatient. - ALLERGIES Allergies/Adverse Reactions: Allergies Allergy/AdvReac Type Severity Reaction Status Date / Time No Known Drug Allergies Allergy Verified 12/13/21 16:39 - MEDICATIONS Home Medications: Ambulatory Orders Medication Instructions Recorded Confirmed Atorvastatin [Lipitor] 10 mg PO HS 12/15/21 12/15/21 Cyanocobalamin (Vitamin B-12) 1,000 mcg SL DAILY 12/15/21 12/15/21 [Vitamin B-12 (1000 mcg sublingual)] Divalproex [Scott Barclay] 250 mg PO BID 12/15/21 12/15/21 Folic Acid 1 mg PO DAILY 12/15/21 12/15/21 Multivitamin [Theragran] 1 tab PO DAILY 12/15/21 12/15/21 OLANZapine [Zyprexa Zydis] 10 mg PO HS 12/15/21 12/15/21 Sertraline [Zoloft] 50 mg PO DAILY 12/15/21 12/15/21 - PHYSICAL EXAM AT DISCHARGE General Appearance: positive: No acute distress Eyes Bilateral: positive: Conjunctivae nml. negative: No scleral icterus ENT: negative: No signs of dehydration, Oral lesions, Dry mucous membranes Neck: positive: No JVD Respiratory: positive: Chest non-tender, No respiratory distress. negative: Wheezes, Rales Cardiovascular: positive: Regular rate & rhythm. negative: No murmur, JVD present, Gallop/S4 Peripheral Pulses: positive: 2+ Abdomen: positive: Non-tender, No organomegaly Extremities: positive: Non-tender, Full ROM. negative: Pedal edema, Joint swelling Neurologic/Psychiatric: positive: Other (A0x1) - LABS Result Diagrams: 12/17/21 04:55 12/17/21 04:55 - SEPSIS Current Stage of Sepsis: Resolved Possible source of Sepsis: Pulmonary - QUALITY (Female Hip Fx Only) Was patient sent home on osteoporosis medication?: No - FOLLOW UP Follow Up: PCP to follow-up in 1 or 2 weeks for CBC redraw and reevaluation of his hypotension - TIME SPENT Time Spent in Discharge (Minutes): 40
[2021-12-17 17:32] VITALS: BP 96/74
== END 2021-12-17 17:30 | disposition home health service (06) | DRG 871 ==
LOC: ED 16:12 → MS2 19:45
PROVIDERS: ADMIT Internal Medicine; ATTEND Family Medicine
PROC: 3E0333Z Introduction of Anti-inflammatory into Peripheral Vein, Percutaneous Approach (ICD-10-PCS; principal; 2021-12-14)
DX: A41.9 Sepsis, unspecified organism (principal); U07.1 COVID-19; F03.90 Unspecified dementia, unspecified severity, without behavioral disturbance, psychotic disturbance, mood disturbance, and anxiety; J18.9 Pneumonia, unspecified organism; Z20.822 Contact with and (suspected) exposure to COVID-19; R41.0 Disorientation, unspecified; F01.51 Vascular dementia, unspecified severity, with behavioral disturbance; Z86.73 Personal history of transient ischemic attack (TIA), and cerebral infarction without residual deficits; R53.1 Weakness; J90 Pleural effusion, not elsewhere classified; I95.9 Hypotension, unspecified; F31.9 Bipolar disorder, unspecified; E78.5 Hyperlipidemia, unspecified; D50.9 Iron deficiency anemia, unspecified; E86.0 Dehydration; I69.398 Other sequelae of cerebral infarction; Z87.891 Personal history of nicotine dependence; Z66 Do not resuscitate
CPT/HCPCS: 36415; 71250; 74176; 80048; 80053; 81001; 82306; 82607; 82746; 83540; 83605; 83735; 84466; 85025; 87040; 87635; 93005; 96361; 96365; 96368; 97161; 97165; 99281; 99285; A9270; J1650; 87086

== ENCOUNTER 2022-06-18 13:34 | Inpatient (IN) | payer MEDICARE ==
[2022-06-18] MEDS ORDERED: SODIUM CHLORIDE 0.9% 1,000 ML IV STA ×3 (14:03→18:02)
[2022-06-18] MEDS ORDERED: ACETAMINOPHEN 1,000 MG/100 ML 1,000 MG/100 ML BAG IV ONE (14:04)
--- NOTE | 2022-06-18 14:08 | ED Physician Documentation ---
History of Present Illness - Stated complaint Stated Complaint: FEVER,HIGH HR - Chief complaint Chief Complaint: Resp - History obtained from History obtained from: Family - Additonal information Additional information: Patient is a 62-year-old with a history of vascular dementia presenting for evaluation of increasing weakness for the past 2 days along with fever noted today. For the past 2 days patient has had decreased activity and appetite with poor oral intake. Prior to that he was able to feed himself. 2 days ago he was able to take food with family members assistance. Today he is not taking anything by mouth and family members have noted that he has a fever. They are unaware of any sick contacts in the home.At baseline he can say some words but does not usually Talk on his own Or participate in conversations. He has had a nonproductive cough and some congestion. No vomiting. He has had 2 episodes of incontinence with stool. History is limited as patient is unable to provide any. Review of Systems Unable to obtain: Dementia PD PAST MEDICAL HISTORY - Past Medical History Cardiovascular: High cholesterol Neuro: Dementia Psych: Depression - Present Medications Home Medications: Ambulatory Orders Medication Instructions Recorded Confirmed Atorvastatin [Lipitor] 10 mg PO HS 12/15/21 12/15/[address] [Depakote Dr] 250 mg PO BID 12/15/21 12/15/21 Folic Acid 1 mg PO DAILY 12/15/21 12/15/21 OLANZapine [Zyprexa Zydis] 10 mg PO BID 12/15/21 12/15/21 Sertraline [Zoloft] 50 mg PO DAILY 12/15/21 12/15/21 Melatonin [Melatoninmax] 20 mg PO QPM 06/18/22 06/18/22 - Allergies Allergies/Adverse Reactions: Allergies Allergy/AdvReac Type Severity Reaction Status Date / Time No Known Drug Allergies Allergy Verified 06/18/22 13:50 - Social History Smoking Status: Never smoker - POLST Patient has POLST: No POLST Status: Full Code PD ED PE NORMAL - General General: No acute distress, Other (Frail-appearing). No: Alert and oriented X 3 (Alert, follows some simple commands such as squeezing with hands; ) - HEENT HEENT: Atraumatic - Neck Neck: Supple, no meningeal sign - Cardiac Cardiac: Other (Tachycardic) - Respiratory Respiratory: No respiratory distress, Other (Diminished breath sounds with poor inspiratory effort) - Abdomen Abdomen: Soft, Non tender, Non distended - Derm Derm: Other (Erythema to left abdominal wall) - Extremities Extremities: No edema Results - Vitals Vitals: Vital Signs - 24 hr 06/18/22 06/18/22 06/18/22 13:43 15:29 16:41 Temperature 38.1 C H 37.6 C Heart Rate 131 H 78 82 Respiratory 32 H 23 20 Rate Blood Pressure 104/74 106/70 87/58 L O2 Saturation 97 97 95 06/18/22 06/18/22 06/18/22 17:11 18:25 19:43 Temperature Heart Rate 90 76 87 Respiratory 25 H 23 18 Rate Blood Pressure 86/52 L 87/65 L 94/60 O2 Saturation 96 96 97 06/18/22 06/18/22 06/19/22 20:33 23:16 02:00 Temperature 37 C Heart Rate 87 79 88 Respiratory 22 22 25 H Rate Blood Pressure 92/66 108/77 111/72 O2 Saturation 99 100 96 06/19/22 06/19/22 02:42 04:09 Temperature 38.4 C H 37.6 C Heart Rate 93 Respiratory 17 Rate Blood Pressure 101/63 O2 Saturation 96 Oxygen O2 Source Room air - Labs Labs: Laboratory Tests 06/18/22 06/18/22 06/18/22 14:05 14:05 14:10 WBC 6.5 RBC 4.97 Hgb 14.6 Hct 44.2 MCV 88.9 MCH 29.4 MCHC 33.0 RDW 13.0 Plt Count 185 MPV 9.3 Neut # (Auto) 4.9 Lymph # (Auto) 0.7 L [place] # (Auto) 0.8 Eos # (Auto) 0.0 Baso # (Auto) 0.0 Absolute Nucleated RBC 0.00 Nucleated RBC % 0.0 Sodium 135 Potassium 3.9 Chloride 98 L Carbon Dioxide 24 Anion Gap 13.0 BUN 23 H Creatinine 0.9 Estimated GFR (MDRD) 85 L Glucose 115 H Lactic Acid 1.6 Calcium 9.0 Total Bilirubin 1.5 H AST 28 ALT 18 Alkaline Phosphatase 50 Total Protein 8.1 Albumin 4.2 Globulin 3.9 Albumin/Globulin Ratio 1.1 Lipase 35 Urine Color Urine Clarity Urine pH Ur Specific [place] Urine Protein Urine Glucose (UA) Urine Ketones Urine Occult Blood Urine Nitrite Urine Bilirubin Urine Urobilinogen Ur Leukocyte Esterase Urine RBC Urine WBC Ur Squamous Epith Cells Urine Bacteria Urine Mucus Ur Microscopic Review Urine Culture Comments Nasal Adenovirus (PCR) Nasal B. parapertussis DNA (PCR) Nasal Coronavir 229E PCR Nasal Coronavir HKU1 PCR Nasal Coronavir NL63 PCR Nasal Coronavir OC43 PCR Nasal Enterovir/Rhinovir PCR Nasal Influenza B PCR Nasal Influenza A PCR Nasal Parainfluen 1 PCR Nasal Parainfluen 2 PCR Nasal Parainfluen 3 PCR Nasal Parainfluen 4 PCR Nasal RSV (PCR) Nasal B.pertussis DNA PCR Nasal C.pneumoniae (PCR) Ferny Human Metapneumo PCR Nasal M.pneumoniae (PCR) Nasal SARS-CoV-2 (PCR) 06/18/22 06/18/22 06/19/22 14:18 15:27 05:11 WBC 5.8 RBC 4.23 L Hgb 12.7 L Hct 37.8 L MCV 89.4 MCH 30.0 MCHC 33.6 RDW 12.8 Plt Count 168 MPV 9.7 Neut # (Auto) 3.9 Lymph # (Auto) 1.1 L [place] # (Auto) 0.8 Eos # (Auto) 0.0 Baso # (Auto) 0.0 Absolute Nucleated RBC 0.00 Nucleated RBC % 0.0 Sodium Potassium Chloride Carbon Dioxide Anion Gap BUN Creatinine Estimated GFR (MDRD) Glucose Lactic Acid Calcium Total Bilirubin AST ALT Alkaline Phosphatase Total Protein Albumin Globulin Albumin/Globulin Ratio Lipase Urine Color YELLOW Urine Clarity HAZY Urine pH 6.0 Ur Specific [place] >=1.030 H Urine Protein NEGATIVE Urine Glucose (UA) NEGATIVE Urine Ketones >=80 H Urine Occult Blood MODERATE H Urine Nitrite NEGATIVE Urine Bilirubin NEGATIVE Urine Urobilinogen 0.2 (NORMAL) Ur Leukocyte Esterase NEGATIVE Urine RBC 6-10 H Urine WBC 0-3 Ur Squamous Epith Cells NONE SEEN Urine Bacteria Rare Urine Mucus Few Strands Ur Microscopic Review INDICATED Urine Culture Comments NOT INDICATED Nasal Adenovirus (PCR) NOT DETECTED Nasal B. parapertussis DNA (PCR) NOT DETECTED Nasal Coronavir 229E PCR NOT DETECTED Nasal Coronavir HKU1 PCR NOT DETECTED Nasal Coronavir NL63 PCR NOT DETECTED Nasal Coronavir OC43 PCR DETECTED A Nasal Enterovir/Rhinovir PCR NOT DETECTED Nasal Influenza B PCR NOT DETECTED Nasal Influenza A PCR NOT DETECTED Nasal Parainfluen 1 PCR NOT DETECTED Nasal Parainfluen 2 PCR NOT DETECTED Nasal Parainfluen 3 PCR NOT DETECTED Nasal Parainfluen 4 PCR NOT DETECTED Nasal RSV (PCR) NOT DETECTED Nasal B.pertussis DNA PCR NOT DETECTED Nasal C.pneumoniae (PCR) NOT DETECTED Ferny Human Metapneumo PCR DETECTED A Nasal M.pneumoniae (PCR) NOT DETECTED Nasal SARS-CoV-2 (PCR) NOT DETECTED 06/19/22 05:11 WBC RBC Hgb Hct MCV MCH MCHC RDW Plt Count MPV Neut # (Auto) Lymph # (Auto) [place] # (Auto) Eos # (Auto) Baso # (Auto) Absolute Nucleated RBC Nucleated RBC % Sodium 136 Potassium 3.3 L Chloride 104 Carbon Dioxide 21 Anion Gap 11.0 BUN 14 Creatinine 0.6 Estimated GFR (MDRD) 136 Glucose 86 Lactic Acid Calcium 7.9 L Total Bilirubin AST ALT Alkaline Phosphatase Total Protein Albumin Globulin Albumin/Globulin Ratio Lipase Urine Color Urine Clarity Urine pH Ur Specific [place] Urine Protein Urine Glucose (UA) Urine Ketones Urine Occult Blood Urine Nitrite Urine Bilirubin Urine Urobilinogen Ur Leukocyte Esterase Urine RBC Urine WBC Ur Squamous Epith Cells Urine Bacteria Urine Mucus Ur Microscopic Review Urine Culture Comments Nasal Adenovirus (PCR) Nasal B. parapertussis DNA (PCR) Nasal Coronavir 229E PCR Nasal Coronavir HKU1 PCR Nasal Coronavir NL63 PCR Nasal Coronavir OC43 PCR Nasal Enterovir/Rhinovir PCR Nasal Influenza B PCR Nasal Influenza A PCR Nasal Parainfluen 1 PCR Nasal Parainfluen 2 PCR Nasal Parainfluen 3 PCR Nasal Parainfluen 4 PCR Nasal RSV (PCR) Nasal B.pertussis DNA PCR Nasal C.pneumoniae (PCR) Ferny Human Metapneumo PCR Nasal M.pneumoniae (PCR) Nasal SARS-CoV-2 (PCR) PD Medical Decision Making - ED course Complexity details: reviewed results, re-evaluated patient, d/w family ED course: Patient is a 62-year-old with a history of vascular dementia presenting for several days of poor oral intake and 1 day history of fever. Family members report he has had a cough and congestion. Presented with a fever and tachycardia.His blood pressures have been soft but do appear to respond to fluids.His work-up has revealed a right lower lobe pneumonia. He has not taking p.o. would not be appropriate for outpatient management. Unfortunately there are no inpatient beds available at [facility] so patient will be boarding in the emergency department overnight. I have ordered scheduled antibiotics as well as his home medications. His respiratory panel is pending. Family members at the bedside confirm his CODE STATUS and would not want to escalate his care to ICU level of care including pressors. He would still want management with IV fluids and antibiotics.His respiratory panel is pending. Patient signed out At shift change.Anticipate the patient will board in the ED overnight. 175 - Discussed with patient's goals of care with his family members (sons) that are at the bedside. They confirm that the patient is DNRDNI. They also confirmed that he would not want aggressive measures like a central line or pressors or placement in an ICU. They are agreeable to treatment with IV fluids, antibiotics and admission to the hospital. If his condition declines Including his blood pressure they understand that this could Affect his heart leading to And would be okay with Focusing on his comfort at that time. Departure - Departure Disposition: 64 [facility] DC/Xfer Clinical Impression: CAP (community acquired pneumonia), Febrile illness, AMS (altered mental status ), Vascular dementia Condition: Fair
[2022-06-18 14:21] LABS: BASOPHILS % (AUTO) 0.3 %; EOSINOPHILS % (AUTO) 0.2 %; HCT - HEMATOCRIT 44.2 % (42.0-52.0); HGB - HEMOGLOBIN 14.6 g/dL (14.0-18.0); LYMPHOCYTES # (AUTO) 0.7 10^3/uL (1.5-3.5); LYMPHOCYTES % (AUTO) 11.4 %; MEAN CORPUSCULAR HEMOGLOBIN 29.4 pg (27.0-31.0); MEAN CORPUSCULAR VOLUME 88.9 fL (80.0-94.0); MEAN PLATELET VOLUME 9.3 fL (7.4-11.4); MONOCYTES # (AUTO) 0.8 10^3/uL (0.0-1.0); MONOCYTES % (AUTO) 12.6 %; NEUTROPHILS # (AUTO) 4.9 10^3/uL (1.5-6.6); NEUTROPHILS % (AUTO) 75.2 %; PLT - PLATELET COUNT 185 10^3/uL (130-450); RED BLOOD COUNT 4.97 10^6/uL (4.70-6.10); WHITE BLOOD COUNT 6.5 x10^3/uL (4.8-10.8)
--- NOTE | 2022-06-18 14:33 | XRAY Report ---
PROCEDURE: Chest 1 View X-Ray INDICATIONS: fever TECHNIQUE: One view of the chest was acquired. COMPARISON: None. FINDINGS: Surgical changes and devices: None. Lungs and pleura: No pleural effusions or pneumothorax. Minimal patchy right basilar atelectasis. Mediastinum: Mediastinal contours appear normal. Heart size is normal. Bones and chest wall: No suspicious bony lesions. Overlying soft tissues appear unremarkable. IMPRESSION: Minimal patchy right basilar atelectasis. Reviewed by: Colt Munoz MD on 06/18/2022 2:32 PM PST Approved by: Colt Munoz MD on 06/18/2022 2:32 PM PST Station ID: [id number]
[2022-06-18 14:43] LABS: ALBUMIN 4.2 g/dL (3.2-5.5); ALBUMIN/GLOBULIN RATIO 1.1 (1.0-2.2); BILIRUBIN,TOTAL 1.5 mg/dL (0.2-1.0); CREATININE 0.9 mg/dL (0.6-1.2); POTASSIUM 3.9 mmol/L (3.5-5.0); TOTAL PROTEIN 8.1 g/dL (6.7-8.2)
[2022-06-18 16:08] LABS: GLUCOSE, URINE (UA) NEGATIVE (NEGATIVE); KETONES,URINE (UA) >=80 mg/dL (NEGATIVE); LEUKOCYTE ESTERASE, URINE NEGATIVE (NEGATIVE); NITRITE,URINE NEGATIVE (NEGATIVE); OCCULT BLOOD,URINE MODERATE (NEGATIVE); PROTEIN,URINE NEGATIVE (NEGATIVE); UROBILINOGEN,URINE 0.2 (NORMAL) E.U./dL (NORMAL)
[2022-06-18 16:13] LABS: BILIRUBIN,URINE NEGATIVE (NEGATIVE); CLARITY,URINE HAZY (CLEAR); ICTOTEST,URINE NEGATIVE
[2022-06-18 16:21] LABS: BACTERIA,URINE Rare /HPF (None Seen); MUCUS,URINE Few Strands; SQUAMOUS EPITHELIAL CELL,UR NONE SEEN (<= Few); WBC,URINE 0-3 /HPF (0-3)
[2022-06-18] MEDS ORDERED: iohexoL-300 100 ML VIAL ONE (16:41)
[2022-06-18] MEDS ORDERED: iohexoL-300 100 ML VIAL IVP ONE (17:14)
--- NOTE | 2022-06-18 17:30 | CT Report ---
PROCEDURE: HEAD WO INDICATIONS: AMS TECHNIQUE: Noncontrast 4.5 mm thick angled axial sections acquired from the foramen magnum to the vertex. For r adiation dose reduction, the following was used: automated exposure control, adjustment of mA and/or kV according to patient size. COMPARISON: None FINDINGS: Image quality: Excellent CSF spaces: Basal cisterns are patent. Lateral ventricles are symmetric. Volume: Vascular calcifications. Periventricular white matter disease is commonly seen with chronic m icroangiopathy. Volume loss is present. These findings are mild to moderate Brain: No intracranial hemorrhage. Blanca-white differentiation is grossly maintained. Craniofacial structures: No displaced fracture. Sinuses are clear. Orbits are intact. IMPRESSION: No acute intracranial abnormality. Reviewed by: Alex Rockwell MD on 06/18/2022 4:29 PM [facility] Approved by: Alex Rockwell MD on 06/18/2022 4:29 PM [facility] Station ID: [id number]
--- NOTE | 2022-06-18 17:37 | CT Report ---
PROCEDURE: CHEST W INDICATIONS: fever without source CONTRAST:100mL Omni 300 TECHNIQUE: After the administration of intravenous contrast, 1 mm axial images were acquired from the pulmonary apices through the posterior costophrenic angles. Axial 5 mm soft tissue kernel reconstructions were performed as well as 8 mm axial MIP and coronal and sagittal 5 mm reformations. For radiation dose reduction, the following was used: automated exposure control, adjustment of mA and/or kV according to patient size. COMPARISON: 12/13/2021 FINDINGS: Image quality: Motion degraded Lungs and pleura: Right lower lobe consolidation again seen, slightly less extensive compared to November 2021 imaging. There is superimposed scarring and atelectasis. There is no significant effusion. Airw ay filling defects, possibly mucous plugs are also seen in this region. There is peribronchial thicke jannette. Mediastinum, heart, and esophagus: Nonspecific distal esophageal wall thickening. Heart size is at th e upper limit of normal. There are suspected coronary calcifications. Prominent mediastinal hilar lym ph nodes are present, which may be reactive if this clinical setting, indeterminate. For example subc arinal node measures 1 cm. Chest wall and thyroid: Unremarkable Upper abdomen: Separately dictated Bones: No acute-appearing or suspicious osseous abnormality. IMPRESSION: Right lower lobe consolidation is decreased compared to 12/13/2021, in the context of fever, this is s uspicious for pneumonia. There is also upstream peribronchial thickening and suspected mucous pluggin g. Prominent mediastinal hilar lymph nodes may be reactive in this clinical setting. Follow-up imagin g is suggested to document resolution, as there could be an underlying mass in the setting of recurre nt pneumonia at the same location. Other findings as above. Reviewed by: Alex Rockwell MD on 06/18/2022 4:35 PM [facility] Approved by: Alex Rockwell MD on 06/18/2022 4:35 PM [facility] Station ID: [id number]
--- NOTE | 2022-06-18 17:40 | CT Report ---
PROCEDURE: ABDOMEN/PELVIS W INDICATIONS: fever without source CONTRAST: 100mL Omni 300 TECHNIQUE: After the administration of IV contrast, 5 mm thick sections acquired from the diaphragms to the symp hysis. 5 mm thick coronal and sagittal reformats were acquired. For radiation dose reduction, the f ollowing was used: automated exposure control, adjustment of mA and/or kV according to patient size. COMPARISON: 12/13/2021 FINDINGS: Image quality: Motion degraded Lower chest: Separately dictated Solid organs: Liver is unremarkable. Gallbladder is unremarkable. No pathologic dilation of biliary t ree or pancreatic duct. There is a duodenal diverticulum next pancreatic duct ampulla. No splenomegal y. No adrenal nodules. No hydronephrosis. Vessels and lymph nodes: No abdominal aortic aneurysm. The main portal vein is patent. No pathologic adenopathy by size criteria. Bowel and peritoneum: No bowel obstruction. There are colonic diverticula. Body wall: Ventral fat and omentum-containing umbilical hernia. Pelvis: Bladder is under distended and difficult to evaluate. There is possible wall thickening. The prostate is also not well evaluated on this study. Bones: No acute or suspicious osseous abnormality. IMPRESSION: No acute abdominal pelvic pathology identified on CT. Possible wall thickening the bladder, correlate with urinalysis. No hydronephrosis. Chest findings are separately dictated. Reviewed by: Alex Rockwell MD on 06/18/2022 4:38 PM [facility] Approved by: Alex Rockwell MD on 06/18/2022 4:38 PM [place] Station ID: [id number]
[2022-06-18] MEDS ORDERED: AZITHROMYCIN INJ 500 MG in SODIUM CHLORIDE 0.9% 250 ML IV STA (17:47)
[2022-06-18] MEDS ORDERED: cefTRIAXone 1 GM in SODIUM CHLORIDE 0.9% MINIBAG 100 ML IV STA (17:47)
[2022-06-18] MEDS ORDERED: ONDANSETRON 4 MG/2 ML VIAL IVP PRN (18:02)
[2022-06-18] MEDS ORDERED: ACETAMINOPHEN 500 MG TABLET PO PRN (18:02)
[2022-06-18] MEDS ORDERED: cefTRIAXone 1 GM VIAL ONE (18:12)
[2022-06-18 18:14] LABS: B. PARAPERTUSSIS- RESP PCR PAN NOT DETECTED; B. PERTUSSIS- RESP PCR PANEL NOT DETECTED; C. PNEUMONIAE- RESP PCR PANEL NOT DETECTED; CORONAVIRUS 229E-RESP PCR NOT DETECTED; CORONAVIRUS HKU1-RESP PCR NOT DETECTED; CORONAVIRUS NL63-RESP PCR NOT DETECTED; CORONAVIRUS OC43-RESP PCR DETECTED; HUMAN METAPNEUMOVIRUS DETECTED; INFLUENZA A- RESP PCR PANEL NOT DETECTED; INFLUENZA B - RESP PCR PANEL NOT DETECTED; M. PNEUMONIAE- RESP PCR PANEL NOT DETECTED; PARAINFLUENZA VIRUS 1 NOT DETECTED; PARAINFLUENZA VIRUS 2 NOT DETECTED; PARAINFLUENZA VIRUS 3 NOT DETECTED; PARAINFLUENZA VIRUS 4 NOT DETECTED; RHINOVIRUS/ENTEROVIRUS NOT DETECTED; RSV- RESP PCR PANEL NOT DETECTED; SARS-CoV-2 -RESP PCR PANEL NOT DETECTED
[2022-06-18] MEDS: PANTOPRAZOLE 40 MG TABLET PO SCH (20:41)
[2022-06-18] MEDS: DIVALPROEX ER 250 MG TABLET PO SCH (20:41)
[2022-06-18] MEDS: OLANZapine ODT 5 MG TABLET TL SCH (20:41)
[2022-06-19] MEDS ORDERED: ACETAMINOPHEN 650 MG SUPP PR STA (02:50)
[2022-06-19 05:27] LABS: BASOPHILS % (AUTO) 0.2 %; EOSINOPHILS % (AUTO) 0.5 %; HCT - HEMATOCRIT 37.8 % (42.0-52.0); HGB - HEMOGLOBIN 12.7 g/dL (14.0-18.0); LYMPHOCYTES # (AUTO) 1.1 10^3/uL (1.5-3.5); LYMPHOCYTES % (AUTO) 18.7 %; MEAN CORPUSCULAR HGB CONC 33.6 g/dL (32.0-36.0); MEAN CORPUSCULAR VOLUME 89.4 fL (80.0-94.0); MEAN PLATELET VOLUME 9.7 fL (7.4-11.4); MONOCYTES # (AUTO) 0.8 10^3/uL (0.0-1.0); MONOCYTES % (AUTO) 13.4 %; NEUTROPHILS # (AUTO) 3.9 10^3/uL (1.5-6.6); NEUTROPHILS % (AUTO) 66.9 %; PLT - PLATELET COUNT 168 10^3/uL (130-450); RED BLOOD COUNT 4.23 10^6/uL (4.70-6.10); RED CELL DISTRIBUTION WIDTH 12.8 % (12.0-15.0); WHITE BLOOD COUNT 5.8 x10^3/uL (4.8-10.8)
[2022-06-19 05:34] LABS: CALCIUM 7.9 mg/dL (8.5-10.3); CREATININE 0.6 mg/dL (0.6-1.2); POTASSIUM 3.3 mmol/L (3.5-5.0)
[2022-06-19] MEDS: PANTOPRAZOLE 40 MG TABLET PO SCH (06:41)
[2022-06-19] MEDS ORDERED: SERTRALINE 50 MG TABLET PO SCH (09:00)
[2022-06-19] MEDS ORDERED: AZITHROMYCIN INJ 500 MG in SODIUM CHLORIDE 0.9% 250 ML IV SCH (09:00)
[2022-06-19] MEDS: OLANZapine ODT 5 MG TABLET TL SCH ×2 (09:00→22:18)
[2022-06-19] MEDS ORDERED: cefTRIAXone 1 GM in SODIUM CHLORIDE 0.9% MINIBAG 100 ML IV SCH (09:00)
[2022-06-19] MEDS: DIVALPROEX ER 250 MG TABLET PO SCH (09:00)
[2022-06-19] MEDS ORDERED: ATORVASTATIN 10 MG TABLET PO SCH (09:00)
[2022-06-19] MEDS ORDERED: ACETAMINOPHEN 325 MG TABLET PO PRN (11:55)
[2022-06-19] MEDS ORDERED: ONDANSETRON ODT 4 MG TABLET TL PRN (11:55)
[2022-06-19] MEDS ORDERED: oxyCODONE 5 MG TABLET PO PRN (11:55)
[2022-06-19] MEDS ORDERED: ONDANSETRON 4 MG/2 ML VIAL IVP PRN (11:55)
[2022-06-19] MEDS ORDERED: IPRATROPIUM/ALBUTEROL 3 ML NEB INH PRN (11:59)
--- NOTE | 2022-06-19 13:23 | HISTORY & PHYSICAL EXAMINATION ---
History of Present Illness - Admitted From Admitted From:: home - History Obtained From Records Reviewed: Bria History obtained from: Son and ER provicer Exam Limitations: he is lethargic, not speaking - History of Present Illness HPI Comment/Other: His son is in the room visiting from [place]. He was seen in the emergency room yesterday afternoon when he was brought in by private vehicle. He has vascular dementia and his baseline status is to need prompting with dressing, feeding, a nd bathing but he can usually do it. He is a little bit of help in the shower but he can usually take care of himself. He walks around the house. Interacts with his family. He is not much of a talker but he does respond appropriately. lives in the same house as he does. She has MS. Both he and his live with her daughter. A week ago he started developing a raspy cough. Lots of gurgles at the base of his throat. Over the last few days he has had less and less appetite. And in the last 2 days he has become less responsive. Not wanting to get out of bed. He went from being able to feed himself, to having his daughter and son feed him, to now not being able to swallow for them. He is not able to be prompted at all. He is also been incontinent of urine and stool couple of times. Yesterday his breathing got labored so they brought him to the emergency room. His temperature was 38.1, blood pressure 104/74, respiration 32. 97% on room air. Heart rate was 131. He is 59.8 kg, and is 5 feet 7 inches tall. He was admitted in November of this year with COVID and was 45 kg. Family has worked very hard at giving him what ever food he wants and his weight is now 59.8 kg. The ER doctor found to be in no acute distress. He appeared very frail. He was alert and following some simple commands. The ER provider states he was oriented x3. He had a supple neck. He was tachycardic. Diminished breath sounds in the lung garza with poor inspiratory effort but no distress. Abdomen was benign and he had erythema over the left anterior abdominal wall. No leg edema. White cell count was 6.5, hemoglobin 14.6. BUN 23, creatinine 0.9. Glucose 115. Lactic acid 1.6. Liver enzymes normal. He is positive for coronavirus variant and human metapneumovirus because he is not able to give a clear history for himself, he had a chest x-ray with minimal patchy right bas ilar atelectasis cyst. He also underwent a chest CT, head CT, and abdomen pelvis CT. He had an umbilical hernia that was fat-containing. Nothing acute in the abdomen. The chest has a right lower lobe consolidation. However it was less consolidated when it was compared to the chest CT when he had COVID in November 2021. But in the context of fever that he developed in the ER, pneumonia suspected. He also had upstream peribronchial thickening and suspected mucous plugging. Prominent mediastinal nodes. Follow-up imaging was suggested to document resolution. They did give him antibiotics, and antipyretics hoping he would be able to go home. Heart rate came down into the 70s and 80s. And he remained well saturated on room air but over the course the afternoon he dropped his pressure to 86 systolic. Respiratory rate has remained intermittently elevated. He continues to spike temperatures. The ER staff wanted to admit him but we had no beds available on the inpatient side. This morning we have had a few discharges and they have approaches for placing him on the inpatient side for treatment of community-acquired pneumonia. Case was discussed with the ER provider to make sure the work-up was completed. We discussed his positive viral status. Most likely he has secondary bacterial pneumonia or inhalation pneumonitis from the phlegm that he just could not quite clear. The ER provider did excellent advance care planning conversation with the family. In reading his notes the son is reiterating almost word for word what was said in the ER. While they are willing for dad to get antibiotics, supportive care with hydration, they do not want central lines, pressures, or t ransfer to the ICU. Son states that dad really took a hit when he had COVID. It was all he could do to recover from that and then get to the status he has been. He is frailty is become very apparent to them. History - Past Medical History Cardiovascular: reports: High cholesterol Neuro: reports: Dementia (vascular) Psych: reports: Depression - Family & Social History Family History Comment/Other: Dad at 67 of heart disease. Mom at a very young age of complications of alcoholism, cirrhosis. 3 brothers. 1 brother killed himself. 1 brother has had a heart attack. But even the one with a heart attack and the other surviving brother are relatively healthy. 3 children. Borderline high blood pressure and 1. But they have no high blood pressure, cancer, diabetes, stroke, thyroid Living arrangement: At home Living Situation: With family Social History Notes: He moved from [place] to [facility] in late 2020 to live with his daughter. He chews tobacco. 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 to his first . She has MS and also lives with her daughter. He has no history of alcohol abuse or smoking - POLST Patient has POLST: No POLST Status: DNR Meds/Allgy - Home Medications Home Medications: Ambulatory Orders Medication Instructions Recorded Confirmed Atorvastatin [Lipitor] 10 mg PO HS 12/15/21 12/15/[address] [Depakote Dr] 250 mg PO BID 12/15/21 12/15/21 Folic Acid 1 mg PO DAILY 12/15/21 12/15/21 OLANZapine [Zyprexa Zydis] 10 mg PO BID 12/15/21 12/15/21 Sertraline [Zoloft] 50 mg PO DAILY 12/15/21 12/15/21 Melatonin [Melatoninmax] 20 mg PO QPM 06/18/22 06/18/22 - Allergies Allergies/Adverse Reactions: Allergies Allergy/AdvReac Type Severity Reaction Status Date / Time No Known Drug Allergies Allergy Verified 06/18/22 13:50 Review of Systems - Constitutional Constitutional: reports: Fatigue, Malaise, Poor appetite - Eyes Eyes: denies: Pain, Irritation, Amaurosis, Blurred vision - Ears, Nose & Throat Ears, Nose & Throat: denies: Hearing loss, Hearing aids, Tinnitus, Vertigo, Sore throat, Hoarseness - Cardiovascular Cariovascular: denies: Irregular heart rate, Chest pain, Exertional dyspnea, Decr. exercise tolerance - Respiratory Respiratory: reports: Cough, Sputum production (More like phlegm at the base of his throat that he could not clear) - Gastrointestinal Gastrointestinal: reports: Poor appetite (Decreased p.o. intake over the last couple of days). denies: Abdominal pain, Abdominal distention, Constipation, Diarrhea - Genitourinary Genitourinary: denies: Urgency, Incontinence - Musculoskeletal Musculoskeletal: reports: Stiffness - Integumentary Integumentary: denies: Rash, Pruritis, Lesions, Dryness - Neurological Neurological: reports: General weakness (In the last few days. They really noticed it when he could not lift his head up to get a shave. It was too much effort), Memory problems, Pre-existing deficit. denies: Focal weakness - Psychiatric Psychiatric: reports: Depression - Endocrine Endocrine: denies: Polyuria, Polydypsia, Polyphagia - Hematologic/Lymphatic Hematologic/Lymphatic: denies: Anemia, Bruising, Petechiae Prior Level of Functionality: Baseline moderate dementia but able to still feed himself, dress himself. Needs prompting but does not use any durable medical equipment. Exam - Vital Signs Reviewed Vital Signs: Yes - Physical Exam General Appearance: positive: No acute distress, Lethargic (Laying flat on his back, eyes closed, no labored respiration, no coughing) Eyes Bilateral: positive: PERRL, EOMI ENT: positive: No signs of dehydration Neck: positive: No JVD. negative: Stiff neck Respiratory: positive: No respiratory distress, Rhonchi. negative: Wheezes, Rales Cardiovascular: positive: Regular rate & rhythm Abdomen: positive: Non-tender, No organomegaly, Nml bowel sounds, No distention Skin: positive: Warm, Diaphoresis Extremities: positive: Full ROM (On passive range of motion. He does open his eyes when I do this), No pedal edema Neurologic/Psychiatric: positive: CN's nml (2-12), Motor nml, Other (I cannot tell what his orientation is. He does not recognize his son and respond to him but he is not answering my questions about where he is, why he is here) Conclusion/Plan - Problem List (1) CAP (community acquired pneumonia) Conclusion/Plan: Rocephin and azithromycin will be given. Yesterday, in the emergency room, he received day 1/3 of azithromycin. Today would be day 2. He received Rocephin 1/5. Today would be day #2. If he responds with reduced encephalopathy, I would hope he could be discharged by day 3. But only time another nature will tell. I will be looking for more alertness. He is not hypoxic. Heart rate is controlled now. And blood pressure still on the low side Qualifiers: Laterality: right Lung location: lower lobe of lung Qualified Code(s): J18.9 - Pneumonia, unspecified organism (2) Metabolic encephalopathy Conclusion/Plan: Due to infection. Son says that he has been way more muted than usual. I am hoping that this will be one of the ways we can gauge if he is responding to treatment. If he becomes more alert, and interactive, he could probably go home at that time (3) Vascular dementia Conclusion/Plan: Home medication list includes Depakote, Zoloft, and Zyprexa. Those will be r esumed. Qualifiers: Dementia severity: severe Dementia behavioral or psychological symptom: without behavioral, psychotic, or mood disturbance or anxiety Qualified Code(s): F01.C0 - Vascular dementia, severe, without behavioral disturbance, psychotic disturbance, mood disturbance, and anxiety - Lab Results Lab results reviewed: Yes Fish Bones: 06/19/22 05:11 06/19/22 05:11 - Diagnostic Imaging Results Diagnostic Imaging Results: positive: Final report reviewed Core Measures - Anticipated LOS I expect patient to be DC'd or transferred within 96 hours.: Yes - DVT/VTE - Prophylaxis VTE/DVT Prophylaxis med ordered at admit?: Yes
[2022-06-19] MEDS: SODIUM CHLORIDE 0.9% 1,000 ML IV SCH ×2 (13:38→23:48)
--- NOTE | 2022-06-19 15:11 | PHARMACY PROGRESS NOTE ---
- Best Possible Medication History Admit Date and Time: 06/19/22 1155 Processed by: Pharmacy Medication History completed: Yes Patient Interview: Pt unable to participate Secondary Source(s): Written medication list, Other family member, Insurance records Patient's son provided home medication list. He reports the patient has not been taking his meds for 3 days and the son frequently has to crush up and give the meds in food to get his father to take them. The patient has been prescribed rivastigmine patches 4.6 mg/24hour in the past, but the son reports that his father will remove them whenever he feels one on him so he has not consistently been on this medication. (Last pharmacy fill was April 03 2022 for a 30-day supply). As the person ultimately responsible for medication therapy, providers are able to order a medication from an existing home medication list in [facility] via the "Reconcile Routine" prior to Confirmation of that medication by pharmacy retail support specialist. Such practice is discouraged except when the physician, in their clinical judgment, deems that a medical need exists for a medication without regard to previous use.
--- NOTE | 2022-06-19 16:54 | ED Physician Documentation ---
ED Addendum - Addendum Addendum: 06/19/22 Patient was received in signout from overnight physician. And familiar with this patient as I took care of him yesterday. Patient did spike a fever overnight and was given a rectal Tylenol. He has not had much change in ability to take p.o. There are discharges in the hospital this morning and I have spoken with the hospitalist, Dr Shearer for admission. Departure - Departure Disposition: [facility] DC/Xfer Clinical Impression: Febrile illness, AMS (altered mental status) CAP (community acquired pneumonia) Qualifiers: Laterality: right Lung location: lower lobe of lung Qualified Code(s): J18.9 - Pneumonia, unspecified organism Vascular dementia Qualifiers: Dementia severity: severe Dementia behavioral or psychological symptom: without behavioral, psychotic, or mood disturbance or anxiety Qualified Code(s): F01.C0 - Vascular dementia, severe, without behavioral disturbance, psychotic disturbance, mood disturbance, and anxiety Condition: Fair Discharge Date/Time: 06/19/22 12:34
[2022-06-19] MEDS: SACCHAROMYCES BOULARDII 250 MG CAPSULE PO SCH (17:27)
[2022-06-19] MEDS: SODIUM CHLORIDE FLUSH 0.9% 10 ML SYRINGE IVP SCH ×2 (17:27→23:48)
[2022-06-19] MEDS: ATORVASTATIN 10 MG TABLET PO SCH (22:17)
[2022-06-19] MEDS: DIVALPROEX DR 125 MG TABLET PO SCH (22:18)
[2022-06-20 04:58] LABS: BASOPHILS % (AUTO) 0.3 %; EOSINOPHILS % (AUTO) 0.1 %; HCT - HEMATOCRIT 36.6 % (42.0-52.0); HGB - HEMOGLOBIN 12.7 g/dL (14.0-18.0); LYMPHOCYTES % (AUTO) 13.1 %; MEAN CORPUSCULAR HEMOGLOBIN 30.3 pg (27.0-31.0); MEAN CORPUSCULAR HGB CONC 34.7 g/dL (32.0-36.0); MEAN CORPUSCULAR VOLUME 87.4 fL (80.0-94.0); MEAN PLATELET VOLUME 9.4 fL (7.4-11.4); MONOCYTES # (AUTO) 0.8 10^3/uL (0.0-1.0); MONOCYTES % (AUTO) 11.1 %; NEUTROPHILS # (AUTO) 5.6 10^3/uL (1.5-6.6); NEUTROPHILS % (AUTO) 75.1 %; PLT - PLATELET COUNT 169 10^3/uL (130-450); RED BLOOD COUNT 4.19 10^6/uL (4.70-6.10); RED CELL DISTRIBUTION WIDTH 12.9 % (12.0-15.0); WHITE BLOOD COUNT 7.4 x10^3/uL (4.8-10.8)
[2022-06-20 05:20] LABS: CREATININE 0.7 mg/dL (0.6-1.2); POTASSIUM 3.2 mmol/L (3.5-5.0)
[2022-06-20] MEDS ORDERED: AZITHROMYCIN INJ 500 MG in SODIUM CHLORIDE 0.9% 250 ML IV SCH (10:00)
[2022-06-20] MEDS: cefTRIAXone 1 GM in SODIUM CHLORIDE 0.9% MINIBAG 100 ML IV SCH (11:47)
[2022-06-20] MEDS: SODIUM CHLORIDE FLUSH 0.9% 10 ML SYRINGE IVP SCH ×2 (11:48→17:33)
[2022-06-20] MEDS: FOLIC ACID 1 MG TABLET PO SCH (13:20)
[2022-06-20] MEDS: OLANZapine ODT 5 MG TABLET TL SCH ×2 (13:20→19:48)
[2022-06-20] MEDS: DIVALPROEX DR 125 MG TABLET PO SCH (13:20)
[2022-06-20] MEDS: SACCHAROMYCES BOULARDII 250 MG CAPSULE PO SCH ×2 (13:20→17:33)
[2022-06-20] MEDS: SERTRALINE 50 MG TABLET PO SCH (13:21)
--- NOTE | 2022-06-20 14:20 | PROVIDER PROGRESS NOTE ---
Subjective - Prog Note Date Prog Note Date: 06/20/22 Prog Note Time: 14:18 - Subjective Subjective: He is not improving. He has become more more obtunded. We have been trying to feed him, but he chokes even on simple liquids. Son has been very devoted and at the bedside. He still worried about his dad. Makes the comment that he does not want his dad to of starvation and dehydration. I gently pointed out that dad is dying of pneumonia, and the pneumonia is making him so weak that he cannot swallow. He is not dying of dehydration but of the effects of the pneumonia. He knows all of this. He says that intellectually he understands what is happening but emotionally this is very very hard on him. He is asking for PPN. I told him that is a form of life support. If I am going to be doing feeding, I would prefer to do tube feeds because he has an intact gut. But before he makes his decision to talk to his sister and his brother and see if this is what they really want. I do feel that this patient is in the gentle slide in the last phase of his life. He has been deteriorating since he had the COVID in November. Never really bounced back. Son describes him of is incontinent of urine and stool at times. Wandering aimlessly. Tired. Sleeping all the time. He knows that his dad would never have wanted to be living life this way Current Medications - Current Medications Current Medications: Active Medications Acetaminophen (Acetaminophen 325 Mg Tablet) 650 mg PO Q4HR PRN PRN Reason: Pain 1 to 4, or Fever Albuterol/Ipratropium (Ipratropium/Albuterol 3 Ml Neb) 3 ml INH RTQID PRN PRN Reason: Wheezing Atorvastatin Calcium (Atorvastatin 10 Mg Tablet) 10 mg PO QPM [facility] Last Admin: 06/19/22 22:17 Dose: Not Given Divalproex Sodium (Divalproex Dr 125 Mg Tablet) 250 mg PO BID [facility] Last Admin: 06/20/22 13:20 Dose: Not Given Folic Acid (Folic Acid 1 Mg Tablet) 1 mg PO DAILY [facility] Last Admin: 06/20/22 13:20 Dose: Not Given Ceftriaxone Sodium 1 gm/ (Sodium Chloride) 100 mls @ 200 mls/hr IV DAILY [facility] Stop: 06/22/22 09:29 Last Infusion: 06/20/22 13:30 Dose: Infused Olanzapine (Olanzapine Odt 5 Mg Tablet) 10 mg TL BID [facility] Last Admin: 06/20/22 13:20 Dose: Not Given Ondansetron HCl (Ondansetron Odt 4 Mg Tablet) 4 mg TL Q6HR PRN PRN Reason: Nausea / Vomiting Ondansetron HCl (Ondansetron 4 Mg/2 Ml Vial) 4 mg IVP Q6HR PRN PRN Reason: Nausea / Vomiting Oxycodone HCl (Oxycodone 5 Mg Tablet) 5 mg PO Q4HR PRN PRN Reason: Pain 5 to 7 Saccharomyces Boulardii (Saccharomyces Boulardii 250 Mg Capsule) 250 mg PO BIDWM [facility] Last Admin: 06/20/22 13:20 Dose: Not Given Sertraline HCl (Sertraline 50 Mg Tablet) 50 mg PO DAILY [facility] Last Admin: 06/20/22 13:21 Dose: Not Given Sodium Chloride (Sodium Chloride Flush 0.9% 10 Ml Syringe) 10 ml IVP PRN PRN PRN Reason: NEEDED PER PROVIDER ORDERS Sodium Chloride (Sodium Chloride Flush 0.9% 10 Ml Syringe) 10 ml IVP 0100,0900,1700 [facility] Last Admin: 06/20/22 11:48 Dose: 10 ml Atorvastatin [Lipitor] 10 mg PO QPM 12/15/[address] [Depakote Dr] 250 mg PO BID 12/15/21 Folic Acid 1 mg PO DAILY 12/15/21 OLANZapine [Zyprexa Zydis] 10 mg PO BID 12/15/21 Sertraline [Zoloft] 50 mg PO DAILY 12/15/21 Melatonin [Melatoninmax] 20 mg PO QPM 06/18/22 Objective - Vital Signs/Intake & Output Reviewed Vital Signs: Yes Vital Signs: Vital Signs x48h Temp Pulse Resp BP Pulse Ox 06/20/22 07:32 37.0 C 92 16 129/80 95 Intake & Output: Intake & Output 06/17/22 06/18/22 06/19/22 06/20/22 23:59 23:59 23:59 23:59 Intake Total 2450 2550 1100 Output Total 0 Balance 2450 2550 1100 - Objective General Appearance: positive: Other (Head tilted back, mouth open breathing, barely responsive to voice or to touch. He had a Trevino put in this morning for urinary retention and there was no response to that.) Eyes Bilateral: positive: PERRL, EOMI ENT: positive: Dry mucous membranes (From mouth open breathing I suspect) Neck: positive: Thyroid nml, No JVD Respiratory: positive: No respiratory distress, Other (Coarse upper airway sounds, gurgling in the mid upper chest heard radiating into the neck) Cardiovascular: positive: Regular rate & rhythm Abdomen: positive: Nml bowel sounds, No distention Skin: positive: Warm, Diaphoresis Extremities: positive: No pedal edema Neurologic/Psychiatric: positive: Other (Minimally responsive to voice or to pain. No spontaneous verbalization. Not moving.) - Lab Results Fish Bones: 06/20/22 04:42 06/20/22 04:42 Other Labs: Lab Results x24hrs 06/20/22 06/20/22 Range/Units 04:42 04:42 WBC 7.4 (4.8-10.8) x10^3/uL RBC 4.19 L (4.70-6.10) 10^6/uL Hgb 12.7 L (14.0-18.0) g/dL Hct 36.6 L (42.0-52.0) % MCV 87.4 (80.0-94.0) fL MCH 30.3 (27.0-31.0) pg MCHC 34.7 (32.0-36.0) g/dL RDW 12.9 (12.0-15.0) % Plt Count 169 (130-450) 10^3/uL MPV 9.4 (7.4-11.4) fL Neut # (Auto) 5.6 (1.5-6.6) 10^3/uL Lymph # (Auto) 1.0 L (1.5-3.5) 10^3/uL [place] # (Auto) 0.8 (0.0-1.0) 10^3/uL Eos # (Auto) 0.0 (0.0-0.7) 10^3/uL Baso # (Auto) 0.0 (0.0-0.1) 10^3/uL Absolute Nucleated RBC 0.00 x10^3/uL Nucleated RBC % 0.0 /100WBC Sodium 134 L (135-145) mmol/L Potassium 3.2 L (3.5-5.0) mmol/L Chloride 103 (101-111) mmol/L Carbon Dioxide 19 L (21-32) mmol/L Anion Gap 12.0 (6-13) BUN 11 (6-20) mg/dL Creatinine 0.7 (0.6-1.2) mg/dL Estimated GFR (MDRD) 114 (>89) Glucose 106 H (70-100) mg/dL Calcium 8.0 L (8.5-10.3) mg/dL ABX Reporting Has patient been on IV antibiotics over the past 48 hours?: Yes Assessment/Plan - Problem List (1) CAP (community acquired pneumonia) Impression: Rocephin and azithromycin will be given. Today would be day 2. Day 3/3 of azithromycin. Day 3/7 of Rocephin. Encephalopathy is not improving. Son is currently asking for what I feel is a form of life support. I think this is an contra distinction to it was stated on admission with advanced directives. I certainly understand and sympathize with his dilemma of watching his father deteriorate. But I do not really think he wants us to do PPN or tube feeds. It would not be in his dad's interest. He is going to talk to his sister, and other brother and get back to me. Qualifiers: Laterality: right Lung location: lower lobe of lung Qualified Code(s): J18.9 - Pneumonia, unspecified organism (2) Metabolic encephalopathy Conclusion/Plan: Due to infection. Son says that he has been way more muted than usual. His encephalopathy is not improving if anything it is getting deeper. He is not responding to therapy. Son will let me know what family would like to do. Do they want me to hold the course, transition him to comfort measures. If they do want transition to comfort measures do they want him to go home with hospice. (3) Vascular dementia Conclusion/Plan: Home medication list includes Depakote, Zoloft, and Zyprexa. Those will be resumed. Qualifiers: Dementia severity: severe Dementia behavioral or psychological symptom: without behavioral, psychotic, or mood disturbance or anxiety Qualified Code(s): F01.C0 - Vascular dementia, severe, without behavioral disturbance, psychotic disturbance, mood disturbance, and anxiety
[2022-06-20] MEDS ORDERED: ACETAMINOPHEN 650 MG SUPP PR PRN (15:25)
[2022-06-20] MEDS: ACETAMINOPHEN 1,000 MG/100 ML 1,000 MG/100 ML BAG IV PRN (15:51)
[2022-06-20] MEDS: VALPROATE INJ 250 MG in SODIUM CHLORIDE 0.9% 100ML 100 ML IV SCH (17:41)
[2022-06-20] MEDS ORDERED: VALPROATE INJ 500 MG in SODIUM CHLORIDE 0.9% 100ML 100 ML IV SCH (18:00)
[2022-06-20] MEDS: D5NS W/20 MEQ KCL 1,000 ML IV SCH (18:50)
[2022-06-20] MEDS: ATORVASTATIN 10 MG TABLET PO SCH (19:48)
[2022-06-21] MEDS: SODIUM CHLORIDE FLUSH 0.9% 10 ML SYRINGE IVP SCH ×3 (00:45→17:58)
[2022-06-21] MEDS: D5NS W/20 MEQ KCL 1,000 ML IV SCH ×2 (05:41→18:04)
[2022-06-21] MEDS: VALPROATE INJ 250 MG in SODIUM CHLORIDE 0.9% 100ML 100 ML IV SCH ×2 (05:41→17:58)
[2022-06-21] MEDS: SODIUM CHLORIDE FLUSH 0.9% 10 ML SYRINGE IVP PRN (05:41)
[2022-06-21 05:43] LABS: BASOPHILS % (AUTO) 0.2 %; EOSINOPHILS % (AUTO) 0.4 %; HCT - HEMATOCRIT 36.3 % (42.0-52.0); HGB - HEMOGLOBIN 12.6 g/dL (14.0-18.0); LYMPHOCYTES # (AUTO) 0.9 10^3/uL (1.5-3.5); LYMPHOCYTES % (AUTO) 16.8 %; MEAN CORPUSCULAR HEMOGLOBIN 29.7 pg (27.0-31.0); MEAN CORPUSCULAR HGB CONC 34.7 g/dL (32.0-36.0); MEAN CORPUSCULAR VOLUME 85.6 fL (80.0-94.0); MEAN PLATELET VOLUME 9.5 fL (7.4-11.4); MONOCYTES # (AUTO) 0.5 10^3/uL (0.0-1.0); MONOCYTES % (AUTO) 9.6 %; NEUTROPHILS % (AUTO) 72.6 %; PLT - PLATELET COUNT 189 10^3/uL (130-450); RED BLOOD COUNT 4.24 10^6/uL (4.70-6.10); RED CELL DISTRIBUTION WIDTH 12.5 % (12.0-15.0); WHITE BLOOD COUNT 5.5 x10^3/uL (4.8-10.8)
[2022-06-21 05:54] LABS: CALCIUM 8.3 mg/dL (8.5-10.3); CREATININE 0.6 mg/dL (0.6-1.2); POTASSIUM 3.2 mmol/L (3.5-5.0)
[2022-06-21] MEDS: cefTRIAXone 1 GM in SODIUM CHLORIDE 0.9% MINIBAG 100 ML IV SCH (08:55)
[2022-06-21] MEDS: OLANZapine ODT 5 MG TABLET TL SCH ×2 (08:56→21:39)
[2022-06-21] MEDS: FOLIC ACID 1 MG TABLET PO SCH (08:56)
[2022-06-21] MEDS: SACCHAROMYCES BOULARDII 250 MG CAPSULE PO SCH ×2 (08:56→16:25)
[2022-06-21] MEDS: SERTRALINE 50 MG TABLET PO SCH (08:56)
--- NOTE | 2022-06-21 14:56 | PROVIDER PROGRESS NOTE ---
Assessment/Plan - Problem List (1) CAP (community acquired pneumonia) Assessment/Plan: He has not needed suppl O2, and has a cough, but is more lethargic every day, not taking meds per RN. He is spikng fevers over 38 degrees C but got IV Tylenol, which helped. I spoke to the son at his bedside to learn the family's wishes Plan: Rocephin and azithromycin will be given. Today would be day 3. Qualifiers: Laterality: right Lung location: lower lobe of lung Qualified Code(s): J18.9 - Pneumonia, unspecified organism (2) Metabolic encephalopathy Conclusion/Plan: This is due to infection. But also, ever since Covid several mos ago, son says that he has been way more muted than usual. His encephalopathy is not improving if anything it is getting deeper here. He is not responding to therapy. Plan: Son and I spoke and he let me know what family would like to do: Continue iv fluids, stop lab tests and needle sticks, continue meds but do not yet start Morphine and the whole Comfort measures package. No starting PPN or tube feeds. Will change diet to NPO except comfort feeding. Son requests to keep him alive until, pt's daughter arrives from out of town in 2 days They do want to transition to comfort measures eventually and go home with Hospice. Will order a Hospice referral. (3) Vascular dementia Conclusion/Plan: Home medication list includes Depakote, Zoloft, and Zyprexa. Plan: Those will be continued, if he swallows. The Depakote was changed to iv form. Qualifiers: Dementia severity: severe Dementia behavioral or psychological symptom: without behavioral, psychotic, or mood disturbance or anxiety Qualified Code(s): F01.C0 - Vascular dementia, severe, without behavioral disturbance, psychotic disturbance, mood disturbance, and anxiety - Current Meds Current Meds: Current Medications Generic Name Dose Route Start Last Admin Trade Name Freq PRN Reason Stop Dose Admin Atorvastatin Calcium 10 mg 06/19/22 21:00 06/20/22 19:48 Atorvastatin 10 Mg Tablet PO Not Given QPM PAT Folic Acid 1 mg 06/20/22 09:00 06/21/22 08:56 Folic Acid 1 Mg Tablet PO Not Given DAILY FORMERLY [facility], [facility]–1983 Ceftriaxone Sodium 1 gm/ 100 mls @ 200 mls/hr 06/20/22 09:00 06/21/22 09:55 Sodium Chloride IV 06/22/22 09:29 Infused DAILY PAT Infusion Acetaminophen 1,000 mg in 100 mls @ 400 mls/hr 06/20/22 15:26 06/20/22 16:40 Acetaminophen IV Infused Q6HR PRN Infusion PAIN 1 TO 4 Valproic Acid 250 mg/ Sodium 102.5 mls @ 100 mls/hr 06/20/22 18:00 06/21/22 06:43 Chloride IV Infused Q12H PAT Infusion Potassium Chloride/Dextrose/Sod Cl 1,000 mls @ 83.333 mls/hr 06/20/22 19:00 06/21/22 05:41 D5ns W/20 Meq Kcl IV 83.333 mls/hr .Q12H PAT Administration Olanzapine 10 mg 06/19/22 21:00 06/21/22 08:56 Olanzapine Odt 5 Mg Tablet TL Not Given BID PAT Saccharomyces Boulardii 250 mg 06/19/22 17:00 06/21/22 08:56 Saccharomyces Boulardii 250 Mg Capsule PO Not Given BIDWM PAT Sertraline HCl 50 mg 06/20/22 09:00 06/21/22 08:56 Sertraline 50 Mg Tablet PO Not Given DAILY PAT Sodium Chloride 10 ml 06/19/22 11:55 06/21/22 05:41 Sodium Chloride Flush 0.9% 10 Ml Syringe IVP 10 ml PRN PRN Administration NEEDED PER PROVIDER ORDERS Sodium Chloride 10 ml 06/19/22 17:00 06/21/22 08:55 Sodium Chloride Flush 0.9% 10 Ml Syringe IVP 10 ml 0100,0900,1700 PAT Administration - Lab Result Fish Bone Diagrams: 06/21/22 05:26 06/21/22 05:26 - Additional Planning My Orders: My Active Orders 06/20/22 18:00 Valproate Inj [Depakene Inj] 250 mg Sodium Chloride 0.9% 100Ml [Normal Saline 0.9% 100Ml] 100 ml IV Q12H 06/20/22 19:00 D5ns W/20 Meq KCl 1,000 ml IV 83.333 mls/hr 06/21/22 Hospice Referral for Post-Discharge Services [CONS] Routine 06/21/22 14:39 DIET [NPO except Meds] [DIET] Subjective - Subjective Patient Reports: Other (He is just sleeping all the time, per RN. He hardly awakens when he is moved. He has not eaten in 2 days.) Objective Vital Signs: Vital Signs - 24 hr 06/20/22 06/20/22 06/21/22 16:00 18:00 00:00 Temperature 38.1 C H 37.6 C 37.1 C Heart Rate [ 96 89 Brachial] Respiratory 22 18 Rate Blood Pressure 119/66 138/98 H [Right Brachial artery] O2 Saturation 94 95 06/21/22 06/21/22 07:27 08:57 Temperature 38.4 C H 37.7 C Heart Rate [ 103 H Brachial] Respiratory 18 Rate Blood Pressure 105/67 [Right Brachial artery] O2 Saturation 92 Oxygen O2 Source Room air I&O (Last 24 Hrs): Intake and Output Totals x24h 06/19/22 06/20/22 06/21/22 23:59 23:59 23:59 Intake Total 2550 1814.999 844.164 Output Total 1500 1375 Balance 2550 314.999 -530.836 General: Other (Obtunded) HEENT: Other (Lips moist) Neck: No JVD Neuro: Other (Obtunded) Cardiovascular: Regular rate Respiratory: No respiratory distress Abdomen: Soft Extremities: No clubbing, No edema - Results Results: Laboratory Results WBC 5.5 x10^3/uL (4.8-10.8) 06/21/22 05:26 RBC 4.24 10^6/uL (4.70-6.10) L 06/21/22 05:26 Hgb 12.6 g/dL (14.0-18.0) L 06/21/22 05:26 Hct 36.3 % (42.0-52.0) L 06/21/22 05:26 MCV 85.6 fL (80.0-94.0) 06/21/22 05:26 MCH 29.7 pg (27.0-31.0) 06/21/22 05:26 MCHC 34.7 g/dL (32.0-36.0) 06/21/22 05:26 RDW 12.5 % (12.0-15.0) 06/21/22 05:26 Plt Count 189 10^3/uL (130-450) 06/21/22 05:26 MPV 9.5 fL (7.4-11.4) 06/21/22 05:26 Neut # (Auto) 4.0 10^3/uL (1.5-6.6) 06/21/22 05:26 Lymph # (Auto) 0.9 10^3/uL (1.5-3.5) L 06/21/22 05:26 [place] # (Auto) 0.5 10^3/uL (0.0-1.0) 06/21/22 05:26 Eos # (Auto) 0.0 10^3/uL (0.0-0.7) 06/21/22 05:26 Baso # (Auto) 0.0 10^3/uL (0.0-0.1) 06/21/22 05:26 Absolute Nucleated RBC 0.00 x10^3/uL 06/21/22 05:26 Nucleated RBC % 0.0 /100WBC 06/21/22 05:26 Sodium 137 mmol/L (135-145) 06/21/22 05:26 Potassium 3.2 mmol/L (3.5-5.0) L 06/21/22 05:26 Chloride 105 mmol/L (101-111) 06/21/22 05:26 Carbon Dioxide 24 mmol/L (21-32) 06/21/22 05:26 Anion Gap 8.0 (6-13) 06/21/22 05:26 BUN 7 mg/dL (6-20) 06/21/22 05:26 Creatinine 0.6 mg/dL (0.6-1.2) 06/21/22 05:26 Estimated GFR (MDRD) 136 (>89) 06/21/22 05:26 Glucose 160 mg/dL (70-100) H 06/21/22 05:26 Lactic Acid 1.6 mmol/L (0.5-2.2) 06/18/22 14:10 Calcium 8.3 mg/dL (8.5-10.3) L 06/21/22 05:26 Total Bilirubin 1.5 mg/dL (0.2-1.0) H 06/18/22 14:05 AST 28 IU/L (10-42) 06/18/22 14:05 ALT 18 IU/L (10-60) 06/18/22 14:05 Alkaline Phosphatase 50 IU/L (42-121) 06/18/22 14:05 Total Protein 8.1 g/dL (6.7-8.2) 06/18/22 14:05 Albumin 4.2 g/dL (3.2-5.5) 06/18/22 14:05 Globulin 3.9 g/dL (2.1-4.2) 06/18/22 14:05 Albumin/Globulin Ratio 1.1 (1.0-2.2) 06/18/22 14:05 Lipase 35 U/L (22-51) 06/18/22 14:05 Urine Color YELLOW 06/18/22 15:27 Urine Clarity HAZY (CLEAR) 06/18/22 15:27 Urine pH 6.0 PH (5.0-7.5) 06/18/22 15:27 Ur Specific [place] >=1.030 (1.002-1.030) H 06/18/22 15:27 Urine Protein NEGATIVE mg/dL (NEGATIVE) 06/18/22 15:27 Urine Glucose (UA) NEGATIVE mg/dL (NEGATIVE) 06/18/22 15:27 Urine Ketones >=80 mg/dL (NEGATIVE) H 06/18/22 15:27 Urine Occult Blood MODERATE (NEGATIVE) H 06/18/22 15:27 Urine Nitrite NEGATIVE (NEGATIVE) 06/18/22 15:27 Urine Bilirubin NEGATIVE (NEGATIVE) 06/18/22 15:27 Urine Urobilinogen 0.2 (NORMAL) E.U./dL (NORMAL) 06/18/22 15:27 Ur Leukocyte Esterase NEGATIVE (NEGATIVE) 06/18/22 15:27 Urine RBC 6-10 /HPF (0-5) H 06/18/22 15:27 Urine WBC 0-3 /HPF (0-3) 06/18/22 15:27 Ur Squamous Epith Cells NONE SEEN (<= Few) 06/18/22 15:27 Urine Bacteria Rare /HPF (None Seen) 06/18/22 15:27 Urine Mucus Few Strands 06/18/22 15:27 Ur Microscopic Review INDICATED 06/18/22 15:27 Urine Culture Comments NOT INDICATED 06/18/22 15:27 Nasal Adenovirus (PCR) NOT DETECTED 06/18/22 14:18 Nasal B. parapertussis DNA (PCR) NOT DETECTED 06/18/22 14:18 Nasal Coronavir 229E PCR NOT DETECTED 06/18/22 14:18 Nasal Coronavir HKU1 PCR NOT DETECTED 06/18/22 14:18 Nasal Coronavir NL63 PCR NOT DETECTED 06/18/22 14:18 Nasal Coronavir OC43 PCR DETECTED A 06/18/22 14:18 Nasal Enterovir/Rhinovir PCR NOT DETECTED 06/18/22 14:18 Nasal Influenza B PCR NOT DETECTED 06/18/22 14:18 Nasal Influenza A PCR NOT DETECTED 06/18/22 14:18 Nasal Parainfluen 1 PCR NOT DETECTED 06/18/22 14:18 Nasal Parainfluen 2 PCR NOT DETECTED 06/18/22 14:18 Nasal Parainfluen 3 PCR NOT DETECTED 06/18/22 14:18 Nasal Parainfluen 4 PCR NOT DETECTED 06/18/22 14:18 Nasal RSV (PCR) NOT DETECTED 06/18/22 14:18 Nasal B.pertussis DNA PCR NOT DETECTED 06/18/22 14:18 Nasal C.pneumoniae (PCR) NOT DETECTED 06/18/22 14:18 [place] Human Metapneumo PCR DETECTED A 06/18/22 14:18 Nasal M.pneumoniae (PCR) NOT DETECTED 06/18/22 14:18 Nasal SARS-CoV-2 (PCR) NOT DETECTED 06/18/22 14:18 - Procedures Procedures: Procedures INTRODUCTION OF ANTI-INFLAM INTO PERIPH VEIN, PERC APPROACH (12/13/21)
[2022-06-21] MEDS: ACETAMINOPHEN 1,000 MG/100 ML 1,000 MG/100 ML BAG IV PRN (15:44)
[2022-06-21] MEDS: ATORVASTATIN 10 MG TABLET PO SCH (21:33)
[2022-06-22] MEDS: SODIUM CHLORIDE FLUSH 0.9% 10 ML SYRINGE IVP SCH (01:15)
[2022-06-22] MEDS: VALPROATE INJ 250 MG in SODIUM CHLORIDE 0.9% 100ML 100 ML IV SCH ×2 (05:38→18:15)
[2022-06-22] MEDS: D5NS W/20 MEQ KCL 1,000 ML IV SCH ×2 (05:56→18:15)
[2022-06-22] MEDS: SACCHAROMYCES BOULARDII 250 MG CAPSULE PO SCH (08:22)
[2022-06-22] MEDS: cefTRIAXone 1 GM in SODIUM CHLORIDE 0.9% MINIBAG 100 ML IV SCH (08:31)
[2022-06-22] MEDS: FOLIC ACID 1 MG TABLET PO SCH (08:38)
[2022-06-22] MEDS: SERTRALINE 50 MG TABLET PO SCH (08:38)
[2022-06-22] MEDS: OLANZapine ODT 5 MG TABLET TL SCH (08:38)
--- NOTE | 2022-06-22 12:21 | PROVIDER PROGRESS NOTE ---
Assessment/Plan - Problem List (1) CAP (community acquired pneumonia) Assessment/Plan: He has not needed suppl O2, and has a cough, but was more lethargic every day until today. He was not taking po meds since he was too obtunded since admission, per RN. He was spiking fevers over 38 degrees C alot yesterday, but got IV Tylenol, which helped. Tody, he is able to do a strong cough, opened his eyes briefly and moved his R arm and hand and a tremor was seen. I spoke to the son at his bedside, to learn the family's wishes, yesterday and today. Plan: Rocephin and azithromycin will be given. Today would be day 4. Prn Tylenol for fever Qualifiers: Laterality: right Lung location: lower lobe of lung Qualified Code(s): J18.9 - Pneumonia, unspecified organism (2) Metabolic encephalopathy Conclusion/Plan: This was felt to be due to infection. But after several days of iv hydration and iv antibx, he slightly awoke today, tried to say 1-2 words. But also, ever since Covid several mos ago, son says that he has been way more muted than usual. Plan: Son and I spoke and he let me know what family would like to do: Continue iv fluids, stop lab tests and needle sticks, continue meds but do not yet start Morphine and the whole Comfort measures package. No starting PPN or tube feeds. We change diet to NPO except comfort feeding. Son requests to keep him alive until, pt's daughter arrives from out of town, which will be tomorrow evening 06/23. They do want to transition to comfort measures eventually and go home with Hospice. We ordered a Hospice referral. Dch will be to home with his , and family will be caregivers. (3) Vascular dementia Conclusion/Plan: Home medication list includes Depakote, Zoloft, and Zyprexa. Plan: Those will be continued, if he swallows. The Depakote was changed to iv form. Qualifiers: Dementia severity: severe Dementia behavioral or psychological symptom: without behavioral, psychotic, or mood disturbance or anxiety Qualified Code(s): F01.C0 - Vascular dementia, severe, without behavioral disturbance, psychotic disturbance, mood disturbance, and anxiety - Current Meds Current Meds: Current Medications Generic Name Dose Route Start Last Admin Trade Name Freq PRN Reason Stop Dose Admin Acetaminophen 650 mg 06/20/22 15:25 06/22/22 01:14 Acetaminophen 650 Mg Supp AR 650 mg Q6HR PRN Administration Pain 1 to 4 or Fever > 38C Acetaminophen 1,000 mg in 100 mls @ 400 mls/hr 06/20/22 15:26 06/21/22 16:25 Acetaminophen IV Infused Q6HR PRN Infusion PAIN 1 TO 4 Valproic Acid 250 mg/ Sodium 102.5 mls @ 100 mls/hr 06/20/22 18:00 06/22/22 08:21 Chloride IV Infused Q12H PAT Infusion Potassium Chloride/Dextrose/Sod Cl 1,000 mls @ 83.333 mls/hr 06/20/22 19:00 06/22/22 05:56 D5ns W/20 Meq Kcl IV 83.333 mls/hr .Q12H PAT Administration Sodium Chloride 10 ml 06/19/22 11:55 06/21/22 05:41 Sodium Chloride Flush 0.9% 10 Ml Syringe IVP 10 ml PRN PRN Administration NEEDED PER PROVIDER ORDERS - Lab Result Fish Bone Diagrams: 06/21/22 05:26 06/21/22 05:26 - Additional Planning My Orders: My Active Orders 06/21/22 14:39 DIET [NPO except Meds] [DIET] Subjective - Subjective Patient Reports: Other (Son at beside. Pt moving R arm, tried to speak, opens eyes briefly.) Objective Vital Signs: Vital Signs - 24 hr 06/21/22 06/22/22 06/22/22 15:50 01:02 01:33 Temperature 38.1 C H 37.8 C 38.2 C H Heart Rate [ 104 H 115 H Brachial] Respiratory 18 24 Rate Blood Pressure 114/84 H 107/64 [Right Brachial artery] O2 Saturation 95 93 06/22/22 06/22/22 02:36 07:26 Temperature 36.6 C 36.3 C L Heart Rate [ 98 80 Brachial] Respiratory 21 Rate Blood Pressure 105/69 [Right Brachial artery] O2 Saturation 97 Oxygen O2 Source Room air I&O (Last 24 Hrs): Intake and Output Totals x24h 06/20/22 06/21/22 06/22/22 23:59 23:59 23:59 Intake Total 1424.919 8439.107 846.942 Output Total 1500 3495 775 Balance 314.999 -483.893 71.942 General: Other (Obtunded, but responds to voice, by opening eyes and murmuring something.) HEENT: Mucous membr. moist/pink Neck: No JVD Neuro: Other (Obtunded but awakens. A R had tremor was seen.) Cardiovascular: Regular rate Respiratory: No respiratory distress (but has a wet cough.) Abdomen: Normal bowel sounds, Soft, No tenderness Extremities: No clubbing, No edema, No tenderness/swelling - Results Results: Laboratory Results WBC 5.5 x10^3/uL (4.8-10.8) 06/21/22 05:26 RBC 4.24 10^6/uL (4.70-6.10) L 06/21/22 05:26 Hgb 12.6 g/dL (14.0-18.0) L 06/21/22 05:26 Hct 36.3 % (42.0-52.0) L 06/21/22 05:26 MCV 85.6 fL (80.0-94.0) 06/21/22 05:26 MCH 29.7 pg (27.0-31.0) 06/21/22 05:26 MCHC 34.7 g/dL (32.0-36.0) 06/21/22 05:26 RDW 12.5 % (12.0-15.0) 06/21/22 05:26 Plt Count 189 10^3/uL (130-450) 06/21/22 05:26 MPV 9.5 fL (7.4-11.4) 06/21/22 05:26 Neut # (Auto) 4.0 10^3/uL (1.5-6.6) 06/21/22 05:26 Lymph # (Auto) 0.9 10^3/uL (1.5-3.5) L 06/21/22 05:26 [place] # (Auto) 0.5 10^3/uL (0.0-1.0) 06/21/22 05:26 Eos # (Auto) 0.0 10^3/uL (0.0-0.7) 06/21/22 05:26 Baso # (Auto) 0.0 10^3/uL (0.0-0.1) 06/21/22 05:26 Absolute Nucleated RBC 0.00 x10^3/uL 06/21/22 05:26 Nucleated RBC % 0.0 /100WBC 06/21/22 05:26 Sodium 137 mmol/L (135-145) 06/21/22 05:26 Potassium 3.2 mmol/L (3.5-5.0) L 06/21/22 05:26 Chloride 105 mmol/L (101-111) 06/21/22 05:26 Carbon Dioxide 24 mmol/L (21-32) 06/21/22 05:26 Anion Gap 8.0 (6-13) 06/21/22 05:26 BUN 7 mg/dL (6-20) 06/21/22 05:26 Creatinine 0.6 mg/dL (0.6-1.2) 06/21/22 05:26 Estimated GFR (MDRD) 136 (>89) 06/21/22 05:26 Glucose 160 mg/dL (70-100) H 06/21/22 05:26 Lactic Acid 1.6 mmol/L (0.5-2.2) 06/18/22 14:10 Calcium 8.3 mg/dL (8.5-10.3) L 06/21/22 05:26 Total Bilirubin 1.5 mg/dL (0.2-1.0) H 06/18/22 14:05 AST 28 IU/L (10-42) 06/18/22 14:05 ALT 18 IU/L (10-60) 06/18/22 14:05 Alkaline Phosphatase 50 IU/L (42-121) 06/18/22 14:05 Total Protein 8.1 g/dL (6.7-8.2) 06/18/22 14:05 Albumin 4.2 g/dL (3.2-5.5) 06/18/22 14:05 Globulin 3.9 g/dL (2.1-4.2) 06/18/22 14:05 Albumin/Globulin Ratio 1.1 (1.0-2.2) 06/18/22 14:05 Lipase 35 U/L (22-51) 06/18/22 14:05 Urine Color YELLOW 06/18/22 15:27 Urine Clarity HAZY (CLEAR) 06/18/22 15:27 Urine pH 6.0 PH (5.0-7.5) 06/18/22 15:27 Ur Specific [place] >=1.030 (1.002-1.030) H 06/18/22 15:27 Urine Protein NEGATIVE mg/dL (NEGATIVE) 06/18/22 15:27 Urine Glucose (UA) NEGATIVE mg/dL (NEGATIVE) 06/18/22 15:27 Urine Ketones >=80 mg/dL (NEGATIVE) H 06/18/22 15:27 Urine Occult Blood MODERATE (NEGATIVE) H 06/18/22 15:27 Urine Nitrite NEGATIVE (NEGATIVE) 06/18/22 15:27 Urine Bilirubin NEGATIVE (NEGATIVE) 06/18/22 15:27 Urine Urobilinogen 0.2 (NORMAL) E.U./dL (NORMAL) 06/18/22 15:27 Ur Leukocyte Esterase NEGATIVE (NEGATIVE) 06/18/22 15:27 Urine RBC 6-10 /HPF (0-5) H 06/18/22 15:27 Urine WBC 0-3 /HPF (0-3) 06/18/22 15:27 Ur Squamous Epith Cells NONE SEEN (<= Few) 06/18/22 15:27 Urine Bacteria Rare /HPF (None Seen) 06/18/22 15:27 Urine Mucus Few Strands 06/18/22 15:27 Ur Microscopic Review INDICATED 06/18/22 15:27 Urine Culture Comments NOT INDICATED 06/18/22 15:27 Nasal Adenovirus (PCR) NOT DETECTED 06/18/22 14:18 Nasal B. parapertussis DNA (PCR) NOT DETECTED 06/18/22 14:18 Nasal Coronavir 229E PCR NOT DETECTED 06/18/22 14:18 Nasal Coronavir HKU1 PCR NOT DETECTED 06/18/22 14:18 Nasal Coronavir NL63 PCR NOT DETECTED 06/18/22 14:18 Nasal Coronavir OC43 PCR DETECTED A 06/18/22 14:18 Nasal Enterovir/Rhinovir PCR NOT DETECTED 06/18/22 14:18 Nasal Influenza B PCR NOT DETECTED 06/18/22 14:18 Nasal Influenza A PCR NOT DETECTED 06/18/22 14:18 Nasal Parainfluen 1 PCR NOT DETECTED 06/18/22 14:18 Nasal Parainfluen 2 PCR NOT DETECTED 06/18/22 14:18 Nasal Parainfluen 3 PCR NOT DETECTED 06/18/22 14:18 Nasal Parainfluen 4 PCR NOT DETECTED 06/18/22 14:18 Nasal RSV (PCR) NOT DETECTED 06/18/22 14:18 Nasal B.pertussis DNA PCR NOT DETECTED 06/18/22 14:18 Nasal C.pneumoniae (PCR) NOT DETECTED 06/18/22 14:18 [place] Human Metapneumo PCR DETECTED A 06/18/22 14:18 Nasal M.pneumoniae (PCR) NOT DETECTED 06/18/22 14:18 Nasal SARS-CoV-2 (PCR) NOT DETECTED 06/18/22 14:18 - Procedures Procedures: Procedures INTRODUCTION OF ANTI-INFLAM INTO PERIPH VEIN, PERC APPROACH (12/13/21)
[2022-06-23] MEDS: VALPROATE INJ 250 MG in SODIUM CHLORIDE 0.9% 100ML 100 ML IV SCH ×2 (05:31→18:02)
[2022-06-23] MEDS: D5NS W/20 MEQ KCL 1,000 ML IV SCH ×2 (06:25→22:39)
--- NOTE | 2022-06-23 17:09 | PROVIDER PROGRESS NOTE ---
Assessment/Plan - Problem List (1) CAP (community acquired pneumonia) Assessment/Plan: He has not needed suppl O2, and has a cough, but was more lethargic every day until today. He was not taking po meds since he was too obtunded since admission, per RN. He is spiking a fever again today. Today, he is able to do a strong cough I spoke to the son at his bedside, to learn the family's wishes, yesterday and today. And daughter from [place] has arrived and is in room today, during my visit with pt. Plan: Rocephin and azithromycin continue. Today would be day 5. Prn Tylenol for fever Qualifiers: Laterality: right Lung location: lower lobe of lung Qualified Code(s): J18.9 - Pneumonia, unspecified organism (2) Metabolic encephalopathy Conclusion/Plan: This was felt to be due to infection. But after several days of iv hydration and iv antibx, he has only slightly awoken, opens his eyes and bilateral hand tremor is seen. Ever since Covid several mos ago, son says that he has been way more muted than usual. PSon and daughter confirmed what family would like to do: Continue iv fluids, stop lab tests and needle sticks, continue meds but do not yet start Morphine and the whole Comfort measures package. No starting PPN or tube feeds. We change diet to NPO except comfort feeding. Son requests to keep him alive until, pt's daughter arrives from out of town, and she just arrived today 06/23. They do want to transition to comfort measures and go home with Hospice. We ordered a Hospice referral. Unknown when Hospice will accept him (we called Hospice today and no one was available, not even answering svc, presumably because it is a holiday today 06/23). Dch will be to home with his , and family will be caregivers. (3) Vascular dementia Conclusion/Plan: Home medication list includes Depakote, Zoloft, and Zyprexa. Plan: The oral ones needed to be stopped, since he aspirates when tries to swallow. The Depakote was changed to iv form. Qualifiers: Dementia severity: severe Dementia behavioral or psychological symptom: without behavioral, psychotic, or mood disturbance or anxiety Qualified Code(s): F01.C0 - Vascular dementia, severe, without behavioral disturbance, psychotic disturbance, mood disturbance, and anxiety - Current Meds Current Meds: Current Medications Generic Name Dose Route Start Last Admin Trade Name Freq PRN Reason Stop Dose Admin Acetaminophen 650 mg 06/20/22 15:25 06/22/22 01:14 Acetaminophen 650 Mg Supp [place] 650 mg Q6HR PRN Administration Pain 1 to 4 or Fever > 38C Acetaminophen 1,000 mg in 100 mls @ 400 mls/hr 06/20/22 15:26 06/21/22 16:25 Acetaminophen IV Infused Q6HR PRN Infusion PAIN 1 TO 4 Valproic Acid 250 mg/ Sodium 102.5 mls @ 100 mls/hr 06/20/22 18:00 06/23/22 07:33 Chloride IV Infused Q12H PAT Infusion Potassium Chloride/Dextrose/Sod Cl 1,000 mls @ 83.333 mls/hr 06/20/22 19:00 06/23/22 15:09 D5ns W/20 Meq Kcl IV 0 mls/hr .Q12H PAT Infusion Sodium Chloride 10 ml 06/19/22 11:55 06/21/22 05:41 Sodium Chloride Flush 0.9% 10 Ml Syringe IVP 10 ml PRN PRN Administration NEEDED PER PROVIDER ORDERS - Lab Result Fish Bone Diagrams: 06/21/22 05:26 06/21/22 05:26 Subjective - Subjective Nursing Reports: Other (Son reports he is slt better: awake, eyes open and follows where son is in room, tried to say 1 word, tried to swallow from a spoon but started coughing.) Objective Vital Signs: Vital Signs - 24 hr 06/22/22 06/23/22 21:00 07:53 Temperature 36.5 C 37.3 C Heart Rate [ 75 84 Brachial] Respiratory 22 22 Rate Blood Pressure 120/69 124/74 [Right Brachial artery] O2 Saturation 96 97 Oxygen O2 Source Room air I&O (Last 24 Hrs): Intake and Output Totals x24h 06/21/22 06/22/22 06/23/22 23:59 23:59 23:59 Intake Total 2391.107 6583.709 8433.275 Output Total 2875 1425 1300 Balance -483.893 524.442 530.275 General: Other (Lethargic, eyes open looking only to L (where son is in room), not speaking, has bilateral hand tremor at rest) HEENT: Mucous membr. moist/pink Neck: Supple Neuro: Other (Obtunded. Only movement are with h is eyes, eyelids and has bilat hand tremor) Respiratory: Rhonchi Abdomen: Soft Extremities: No clubbing, No edema - Results Results: Laboratory Results WBC 5.5 x10^3/uL (4.8-10.8) 06/21/22 05:26 RBC 4.24 10^6/uL (4.70-6.10) L 06/21/22 05:26 Hgb 12.6 g/dL (14.0-18.0) L 06/21/22 05:26 Hct 36.3 % (42.0-52.0) L 06/21/22 05:26 MCV 85.6 fL (80.0-94.0) 06/21/22 05:26 MCH 29.7 pg (27.0-31.0) 06/21/22 05:26 MCHC 34.7 g/dL (32.0-36.0) 06/21/22 05:26 RDW 12.5 % (12.0-15.0) 06/21/22 05:26 Plt Count 189 10^3/uL (130-450) 06/21/22 05:26 MPV 9.5 fL (7.4-11.4) 06/21/22 05:26 Neut # (Auto) 4.0 10^3/uL (1.5-6.6) 06/21/22 05:26 Lymph # (Auto) 0.9 10^3/uL (1.5-3.5) L 06/21/22 05:26 [place] # (Auto) 0.5 10^3/uL (0.0-1.0) 06/21/22 05:26 Eos # (Auto) 0.0 10^3/uL (0.0-0.7) 06/21/22 05:26 Baso # (Auto) 0.0 10^3/uL (0.0-0.1) 06/21/22 05:26 Absolute Nucleated RBC 0.00 x10^3/uL 06/21/22 05:26 Nucleated RBC % 0.0 /100WBC 06/21/22 05:26 Sodium 137 mmol/L (135-145) 06/21/22 05:26 Potassium 3.2 mmol/L (3.5-5.0) L 06/21/22 05:26 Chloride 105 mmol/L (101-111) 06/21/22 05:26 Carbon Dioxide 24 mmol/L (21-32) 06/21/22 05:26 Anion Gap 8.0 (6-13) 06/21/22 05:26 BUN 7 mg/dL (6-20) 06/21/22 05:26 Creatinine 0.6 mg/dL (0.6-1.2) 06/21/22 05:26 Estimated GFR (MDRD) 136 (>89) 06/21/22 05:26 Glucose 160 mg/dL (70-100) H 06/21/22 05:26 Lactic Acid 1.6 mmol/L (0.5-2.2) 06/18/22 14:10 Calcium 8.3 mg/dL (8.5-10.3) L 06/21/22 05:26 Total Bilirubin 1.5 mg/dL (0.2-1.0) H 06/18/22 14:05 AST 28 IU/L (10-42) 06/18/22 14:05 ALT 18 IU/L (10-60) 06/18/22 14:05 Alkaline Phosphatase 50 IU/L (42-121) 06/18/22 14:05 Total Protein 8.1 g/dL (6.7-8.2) 06/18/22 14:05 Albumin 4.2 g/dL (3.2-5.5) 06/18/22 14:05 Globulin 3.9 g/dL (2.1-4.2) 06/18/22 14:05 Albumin/Globulin Ratio 1.1 (1.0-2.2) 06/18/22 14:05 Lipase 35 U/L (22-51) 06/18/22 14:05 Urine Color YELLOW 06/18/22 15:27 Urine Clarity HAZY (CLEAR) 06/18/22 15:27 Urine pH 6.0 PH (5.0-7.5) 06/18/22 15:27 Ur Specific [place] >=1.030 (1.002-1.030) H 06/18/22 15:27 Urine Protein NEGATIVE mg/dL (NEGATIVE) 06/18/22 15:27 Urine Glucose (UA) NEGATIVE mg/dL (NEGATIVE) 06/18/22 15:27 Urine Ketones >=80 mg/dL (NEGATIVE) H 06/18/22 15:27 Urine Occult Blood MODERATE (NEGATIVE) H 06/18/22 15:27 Urine Nitrite NEGATIVE (NEGATIVE) 06/18/22 15:27 Urine Bilirubin NEGATIVE (NEGATIVE) 06/18/22 15:27 Urine Urobilinogen 0.2 (NORMAL) E.U./dL (NORMAL) 06/18/22 15:27 Ur Leukocyte Esterase NEGATIVE (NEGATIVE) 06/18/22 15:27 Urine RBC 6-10 /HPF (0-5) H 06/18/22 15:27 Urine WBC 0-3 /HPF (0-3) 06/18/22 15:27 Ur Squamous Epith Cells NONE SEEN (<= Few) 06/18/22 15:27 Urine Bacteria Rare /HPF (None Seen) 06/18/22 15:27 Urine Mucus Few Strands 06/18/22 15:27 Ur Microscopic Review INDICATED 06/18/22 15:27 Urine Culture Comments NOT INDICATED 06/18/22 15:27 Nasal Adenovirus (PCR) NOT DETECTED 06/18/22 14:18 Nasal B. parapertussis DNA (PCR) NOT DETECTED 06/18/22 14:18 Nasal Coronavir 229E PCR NOT DETECTED 06/18/22 14:18 Nasal Coronavir HKU1 PCR NOT DETECTED 06/18/22 14:18 Nasal Coronavir NL63 PCR NOT DETECTED 06/18/22 14:18 Nasal Coronavir OC43 PCR DETECTED A 06/18/22 14:18 Nasal Enterovir/Rhinovir PCR NOT DETECTED 06/18/22 14:18 Nasal Influenza B PCR NOT DETECTED 06/18/22 14:18 Nasal Influenza A PCR NOT DETECTED 06/18/22 14:18 Nasal Parainfluen 1 PCR NOT DETECTED 06/18/22 14:18 Nasal Parainfluen 2 PCR NOT DETECTED 06/18/22 14:18 Nasal Parainfluen 3 PCR NOT DETECTED 06/18/22 14:18 Nasal Parainfluen 4 PCR NOT DETECTED 06/18/22 14:18 Nasal RSV (PCR) NOT DETECTED 06/18/22 14:18 Nasal B.pertussis DNA PCR NOT DETECTED 06/18/22 14:18 Nasal C.pneumoniae (PCR) NOT DETECTED 06/18/22 14:18 [place] Human Metapneumo PCR DETECTED A 06/18/22 14:18 Nasal M.pneumoniae (PCR) NOT DETECTED 06/18/22 14:18 Nasal SARS-CoV-2 (PCR) NOT DETECTED 06/18/22 14:18 - Procedures Procedures: Procedures INTRODUCTION OF ANTI-INFLAM INTO PERIPH VEIN, PERC APPROACH (12/13/21)
[2022-06-23] MEDS: SODIUM CHLORIDE FLUSH 0.9% 10 ML SYRINGE IVP PRN ×2 (17:29→18:06)
[2022-06-23] MEDS: ACETAMINOPHEN 1,000 MG/100 ML 1,000 MG/100 ML BAG IV PRN (17:29)
[2022-06-24] MEDS: ACETAMINOPHEN 1,000 MG/100 ML 1,000 MG/100 ML BAG IV PRN ×2 (03:00→16:25)
[2022-06-24] MEDS: SODIUM CHLORIDE FLUSH 0.9% 10 ML SYRINGE IVP PRN ×2 (06:46→16:25)
[2022-06-24] MEDS: VALPROATE INJ 250 MG in SODIUM CHLORIDE 0.9% 100ML 100 ML IV SCH ×2 (06:46→18:25)
[2022-06-24] MEDS ORDERED: MORPHINE SOL 10 MG/0.5 ML ORAL SYRINGE SL PRN (10:38)
[2022-06-24] MEDS ORDERED: CARBOXYMETHYLCELLULOSE OPHTH DROPS EACHEYE PRN (10:38)
[2022-06-24] MEDS ORDERED: GLYCOPYRROLATE 1 MG/5 ML VIAL SUBQ PRN (10:38)
--- NOTE | 2022-06-24 10:44 | PROVIDER PROGRESS NOTE ---
Assessment/Plan - Problem List (1) Metabolic encephalopathy Assessment/Plan: This was felt to be due to infection. But after several days of iv hydration and iv antibx, he has only slightly awoken, opens his eyes and has a bilateral hand tremor seen. Ever since Covid several mos ago, son says that he has been way more muted than usual. Son and daughter from [place], both in room yesterday, confirmed with me what family would like to do: Continue iv fluids, stop lab tests and needle sticks, continue meds but do not yet start Morphine and the whole Comfort measures package until, pt's daughter arrives from [place], and she just arrived yesterday 06/23 and saw him. No feeding and we had changed diet to NPO except comfort feeding several days ago, but he aspirates. Plan: Today will transition to comfort measures. The family wants him to go home with Hospice. We ordered a Hospice referral. Unknown when Hospice will accept him as they were not reachable 06/21-06/23, today is 06/24. However, I spoke to eldest daughter Zari today, who told me that she did reach the on-call hospice person Simi yesterday to request Hospice. Dch will be to home to be with his , and family will be caregivers. (2) Vascular dementia Conclusion/Plan: Home medication list includes Depakote, Zoloft, and Zyprexa. Plan: The oral ones needed to be stopped, since he aspirates when tries to swallow. The Depakote was changed to iv form. Will need to determine how to manage his use of these oral meds, especially if any of them are fopr seizures, when he cannot swallow. I ordered a Hospice consult, and I called the Hospice office today to inform them about this question Qualifiers: Dementia severity: severe Dementia behavioral or psychological symptom: without behavioral, psychotic, or mood disturbance or anxiety Qualified Code(s): F01.C0 - Vascular dementia, severe, without behavioral disturbance, psychotic disturbance, mood disturbance, and anxiety (3) Comfort measures only status Impression: I spoke to son in room and daughter Zari by phone today and confirmed that we are to start Comfort measures today. Plan: Will start the Comfort packet today No more iv fluids for hydration. The PNA treatment was completed. Continue Tylenol for fevers now. (4) CAP Treatment completed He has not needed suppl O2, and has a cough, but was more lethargic every day until today. He was not taking po meds since he was too obtunded since admission, per RN. He is spiking a fever again today. Since yesterday, he is able to do a strong cough I spoke to the son at his bedside, to learn the family's wishes, for the last 2 days and today. And daughter from [place] has arrived and was in room yesterday, during my visit with pt. Plan: Prn Tylenol for fever Qualifiers: Laterality: right Lung location: lower lobe of lung Qualified Code(s): J18.9 - Pneumonia, unspecified organism - Current Meds Current Meds: Current Medications Generic Name Dose Route Start Last Admin Trade Name Freq PRN Reason Stop Dose Admin Acetaminophen 650 mg 06/20/22 15:25 06/22/22 01:14 Acetaminophen 650 Mg Supp [place] 650 mg Q6HR PRN Administration Pain 1 to 4 or Fever > 38C Acetaminophen 1,000 mg in 100 mls @ 400 mls/hr 06/20/22 15:26 06/24/22 03:32 Acetaminophen IV Infused Q6HR PRN Infusion PAIN 1 TO 4 Valproic Acid 250 mg/ Sodium 102.5 mls @ 100 mls/hr 06/20/22 18:00 06/24/22 07:48 Chloride IV Infused Q12H PAT Infusion Sodium Chloride 10 ml 06/19/22 11:55 06/24/22 06:46 Sodium Chloride Flush 0.9% 10 Ml Syringe IVP 10 ml PRN PRN Administration NEEDED PER PROVIDER ORDERS - Lab Result Fish Bone Diagrams: 06/21/22 05:26 06/21/22 05:26 - Additional Planning My Orders: My Active Orders 06/24/22 Hospice Fur Matcher Consult [CONS] Routine 06/24/22 10:38 Comfort Care [RC] QSHIFT Cooling Unit [RC] PRN Oral Care - Nursing [RC] BID Turn and Reposition [RC] PRN Warming Unit [RC] PRN Carboxymethylcellulose 1% Opht [Refresh 1% Ophth Drops] 1 drops EACHEYE QID PRN Glycopyrrolate [Robinul] 0.2 mg SUBQ Q4H PRN Morphine Oral Soln [Roxanol] 10 mg SL Q2HR PRN 06/24/22 11:00 Scopolamine Patch [Transderm-Scop] 1 patch TOP Q3D Subjective - Subjective Patient Reports: Other (No change since yesterday: Is bedbound, opens his eyes, seems to prefer looking to his left side and has right sided neglect, has a cough, cannot swallow without aspirating) Objective Vital Signs: Vital Signs - 24 hr 06/23/22 21:55 Temperature 36.5 C Heart Rate [ 77 Brachial] Respiratory 20 Rate Blood Pressure 115/78 [Right Brachial artery] O2 Saturation 92 Oxygen O2 Source Room air I&O (Last 24 Hrs): Intake and Output Totals x24h 06/22/22 06/23/22 06/24/22 23:59 23:59 23:59 Intake Total 9993.194 2242.000 591.217 Output Total 1425 2000 725 Balance 524.442 305.000 -133.783 General: Other (Obtunded, awakens) HEENT: Mucous membr. moist/pink Neck: Supple Neuro: Other (Obtunded, awakens to voice and opens eyes, right-sided neglect, both hands have tremor) Cardiovascular: Regular rate Respiratory: No respiratory distress, Rhonchi Abdomen: Soft Extremities: No edema - Results Results: Laboratory Results WBC 5.5 x10^3/uL (4.8-10.8) 06/21/22 05:26 RBC 4.24 10^6/uL (4.70-6.10) L 06/21/22 05:26 Hgb 12.6 g/dL (14.0-18.0) L 06/21/22 05:26 Hct 36.3 % (42.0-52.0) L 06/21/22 05:26 MCV 85.6 fL (80.0-94.0) 06/21/22 05:26 MCH 29.7 pg (27.0-31.0) 06/21/22 05:26 MCHC 34.7 g/dL (32.0-36.0) 06/21/22 05:26 RDW 12.5 % (12.0-15.0) 06/21/22 05:26 Plt Count 189 10^3/uL (130-450) 06/21/22 05:26 MPV 9.5 fL (7.4-11.4) 06/21/22 05:26 Neut # (Auto) 4.0 10^3/uL (1.5-6.6) 06/21/22 05:26 Lymph # (Auto) 0.9 10^3/uL (1.5-3.5) L 06/21/22 05:26 [place] # (Auto) 0.5 10^3/uL (0.0-1.0) 06/21/22 05:26 Eos # (Auto) 0.0 10^3/uL (0.0-0.7) 06/21/22 05:26 Baso # (Auto) 0.0 10^3/uL (0.0-0.1) 06/21/22 05:26 Absolute Nucleated RBC 0.00 x10^3/uL 06/21/22 05:26 Nucleated RBC % 0.0 /100WBC 06/21/22 05:26 Sodium 137 mmol/L (135-145) 06/21/22 05:26 Potassium 3.2 mmol/L (3.5-5.0) L 06/21/22 05:26 Chloride 105 mmol/L (101-111) 06/21/22 05:26 Carbon Dioxide 24 mmol/L (21-32) 06/21/22 05:26 Anion Gap 8.0 (6-13) 06/21/22 05:26 BUN 7 mg/dL (6-20) 06/21/22 05:26 Creatinine 0.6 mg/dL (0.6-1.2) 06/21/22 05:26 Estimated GFR (MDRD) 136 (>89) 06/21/22 05:26 Glucose 160 mg/dL (70-100) H 06/21/22 05:26 Lactic Acid 1.6 mmol/L (0.5-2.2) 06/18/22 14:10 Calcium 8.3 mg/dL (8.5-10.3) L 06/21/22 05:26 Total Bilirubin 1.5 mg/dL (0.2-1.0) H 06/18/22 14:05 AST 28 IU/L (10-42) 06/18/22 14:05 ALT 18 IU/L (10-60) 06/18/22 14:05 Alkaline Phosphatase 50 IU/L (42-121) 06/18/22 14:05 Total Protein 8.1 g/dL (6.7-8.2) 06/18/22 14:05 Albumin 4.2 g/dL (3.2-5.5) 06/18/22 14:05 Globulin 3.9 g/dL (2.1-4.2) 06/18/22 14:05 Albumin/Globulin Ratio 1.1 (1.0-2.2) 06/18/22 14:05 Lipase 35 U/L (22-51) 06/18/22 14:05 Urine Color YELLOW 06/18/22 15:27 Urine Clarity HAZY (CLEAR) 06/18/22 15:27 Urine pH 6.0 PH (5.0-7.5) 06/18/22 15:27 Ur Specific [place] >=1.030 (1.002-1.030) H 06/18/22 15:27 Urine Protein NEGATIVE mg/dL (NEGATIVE) 06/18/22 15:27 Urine Glucose (UA) NEGATIVE mg/dL (NEGATIVE) 06/18/22 15:27 Urine Ketones >=80 mg/dL (NEGATIVE) H 06/18/22 15:27 Urine Occult Blood MODERATE (NEGATIVE) H 06/18/22 15:27 Urine Nitrite NEGATIVE (NEGATIVE) 06/18/22 15:27 Urine Bilirubin NEGATIVE (NEGATIVE) 06/18/22 15:27 Urine Urobilinogen 0.2 (NORMAL) E.U./dL (NORMAL) 06/18/22 15:27 Ur Leukocyte Esterase NEGATIVE (NEGATIVE) 06/18/22 15:27 Urine RBC 6-10 /HPF (0-5) H 06/18/22 15:27 Urine WBC 0-3 /HPF (0-3) 06/18/22 15:27 Ur Squamous Epith Cells NONE SEEN (<= Few) 06/18/22 15:27 Urine Bacteria Rare /HPF (None Seen) 06/18/22 15:27 Urine Mucus Few Strands 06/18/22 15:27 Ur Microscopic Review INDICATED 06/18/22 15:27 Urine Culture Comments NOT INDICATED 06/18/22 15:27 Nasal Adenovirus (PCR) NOT DETECTED 06/18/22 14:18 Nasal B. parapertussis DNA (PCR) NOT DETECTED 06/18/22 14:18 Nasal Coronavir 229E PCR NOT DETECTED 06/18/22 14:18 Nasal Coronavir HKU1 PCR NOT DETECTED 06/18/22 14:18 Nasal Coronavir NL63 PCR NOT DETECTED 06/18/22 14:18 Nasal Coronavir OC43 PCR DETECTED A 06/18/22 14:18 Nasal Enterovir/Rhinovir PCR NOT DETECTED 06/18/22 14:18 Nasal Influenza B PCR NOT DETECTED 06/18/22 14:18 Nasal Influenza A PCR NOT DETECTED 06/18/22 14:18 Nasal Parainfluen 1 PCR NOT DETECTED 06/18/22 14:18 Nasal Parainfluen 2 PCR NOT DETECTED 06/18/22 14:18 Nasal Parainfluen 3 PCR NOT DETECTED 06/18/22 14:18 Nasal Parainfluen 4 PCR NOT DETECTED 06/18/22 14:18 Nasal RSV (PCR) NOT DETECTED 06/18/22 14:18 Nasal B.pertussis DNA PCR NOT DETECTED 06/18/22 14:18 Nasal C.pneumoniae (PCR) NOT DETECTED 06/18/22 14:18 [place] Human Metapneumo PCR DETECTED A 06/18/22 14:18 Nasal M.pneumoniae (PCR) NOT DETECTED 06/18/22 14:18 Nasal SARS-CoV-2 (PCR) NOT DETECTED 06/18/22 14:18 - Procedures Procedures: Procedures INTRODUCTION OF ANTI-INFLAM INTO PERIPH VEIN, PERC APPROACH (12/13/21)
[2022-06-24] MEDS ORDERED: SCOPOLAMINE PATCH TOP SCH (11:00)
[2022-06-24] MEDS: D5NS W/20 MEQ KCL 1,000 ML IV SCH (13:31)
--- NOTE | 2022-06-24 15:50 | CONSULTATION NOTE ---
Hospice Consultation ([facility]) - Hospice Consultation June 24, 2022 Hospice physician consult Consult requested by hospitalistDr. Watson Consulting physician: SOFY Cisneros MD Reason for consult: Facilitate home discharge with hospice services History obtained from patient's son, hospitalist and review of records. Patient unable to participate. Historypatient is a 62-year-old male admitted to [facility] via the emergency department following a progressive decline over the preceding few days at home. He had developed a raspy cough, increasing weakness and difficulty swallowing. He had basically stopped eating and had to become bedbound. He had also developed bowel and bladder incontinence. His baseline function is status post several strokes, vascular dementia but was ambulatory at home, required some assistance for a shower and encouragement with regard to clothing and feeding but basically able to dress himself and feed himself. He was living with his daughter. He was previously hospitalized at [facility] in November 2021 with COVID infection and pneumonia. Son states he had been declining in bed ev en before that but family noted notable decline after that although they were able to get him to eat and gained weight. Goals of careson is very clear that they wish to take patient home and keep h im comfortable. He states he and his siblings as well as patient's spouse have been aware of his progressive decline and recognize he is not likely to survive this episode. He has been unable to eat or drink and they do not wish for any feeding tube to be placed. They are clear they want him to not be resuscitated had a new POLST was completed during this hospitalization. Spouse is the official POA but she has advanced MS and is nonambulatory although apparently is cognitively intact. Son was not aware if there are any advanced directives but in reviewing issues about care and goals of care is very clear they do not want heroic measures such as feeding tubes, antibiotics or ventilator assistance. Son expressed some concerns about IV hydration but understood and agreed with plans to not continue IV hydration. PMAraceli believes his father has had multiple strokes and has had progressive cognitive impairment with regard to that. 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 Son states his father was extremely stressed about a year ago and suffered probably another stroke but became quite agitated with increasing confusion. At that time Depakote, olanzapine and Zoloft were added. Son states there were never any seizures. He feels these medicines, especially the olanzapine may have complicated his father's health. 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 Prior to that he had worked in the [employer] until those closed. He is chewed tobacco for many years. He rarely had any alcohol and no history of illicit drug use. to his first spouse whom he is cared for for many years with her progressive multiple sclerosis. She is now nonambulatory. She has an indwelling Trevino catheter. About a year ago they moved out to live with daughter but still have some nursing care assistance regarding the catheter. He has 3 children, son Travis who is here from [place] and was interviewed for this visit, daughter with whom patient and spouse live at another daughter who is here from [place]. Allergiesno known drug allergies COVID historypatient was COVID positive in November. Negative at this visit. Medicationspatient had continued on Depakote 250 mg twice daily, has been receiving IV Tylenol, scope patch every 72 hours and was being treated with azithromycin and Rocephin for usual regimen. Review of systemspatient is moderate a few words but been basically unable to follow commands, reposition self and has been unable to swallow any food or liquids. He has occasional tremors in his hands. He tends to look mostly to the left. Recent onset of bowel and bladder incontinence. Was previously continent at home. Although he apparently was not extremely verbal would speak and be able to be understood at home. He ambulated but required assistance and a shower. At his initial admission he had full passive range of motion of extremities without obvious lateralizing signs. PEpatient appears to be awake but does not make eye contact, did not answer any questions or speak and did not follow commands. He tended to keep elbows and wrists flexed, occasional tremor noted. He did not appear uncomfortable. Decreased breath sounds. Pulse regular at approximately 80. Abdomen soft. Imaging studies obtained where his head CT, chest CT and abdominal pelvis CT. Reports were reviewed. No evidence of acute intracranial pathology. Right lower lobe consolidation appears improved since November. Peribronchial thickening and small paratracheal nodes thought to most likely be inflammation. Impressionthis gentleman has had gradual decline over the past 2 years. Most consistent with multiple strokes. Clearly he has had an acute event more consistent with cerebrovascular event found infection. At this point his dysphagia is such that he is unable to eat or drink and the dilemma is thus how to give him medications at home. I believe his prognosis is in the range of days. Appears to have excellent family support with great motivation to take him home. Recommendationafter discussion with patient's son, hospitalist, nursing supervisor newspaper deliveries and nurses agreed with plan for hospice nurse to place Baylis catheter and transition meds to being given via Lori. She will also provide instruction for son and hospital nursing staff regarding use of Lori catheter. We will discontinue all medications except for scope patch, Tylenol lorazepam and morphine. Would recommend that Tylenol be given 650 mg via Baylis catheter 3 times daily, lorazepam 0.5 mg twice daily scheduled plus every 4 hours as needed anxiety or tremor. Morphine sulfate 5 mg 30 minutes before turning or personal care and every 2 hours as needed pain. This would also be via Baylis catheter. He just had a new scope patch placed and we can readdress that at home. Hopefully he will be transferred home tomorrow. Hospice has requested that delivery of hospital bed and over bed tray be made tomorrow which hopefully will be prior to patient arriving at home. I have requested that the hospitalist provide prescriptions for morphine, lorazepam and Tylenol for the family to take home. Hopefully hospice will officially admit him either or Thursday. Thank you for this consult. If there are further questions please feel free to contact hospice office or myself. SOFY Cisneros MD [facility]
[2022-06-24] MEDS ORDERED: MORPHINE SOL 10 MG/0.5 ML ORAL SYRINGE PR PRN (17:53)
[2022-06-24] MEDS ORDERED: LORazepam 1 MG TABLET PR PRN (17:54)
[2022-06-24] MEDS ORDERED: LORazepam 2 MG/ML VIAL IVP STA (18:07)
[2022-06-25] MEDS: VALPROATE INJ 250 MG in SODIUM CHLORIDE 0.9% 100ML 100 ML IV SCH (06:55)
[2022-06-25 08:21] VITALS: BP 130/85
--- NOTE | 2022-06-25 11:52 | Discharge Plan ---
Discharge Plan Problem Reviewed?: Yes Disposition: Home, Self Care Condition: Poor Prescriptions: Morphine Oral Soln [Roxanol] 10 mg NV Q2HR PRN #30 ml PRN Reason: As Needed Per Provider Orders LORazepam [Ativan] 0.5 mg PO Q6H PRN #10 tablet PRN Reason: As Needed Per Provider Orders Carboxymethylcellulose 1% Opht [Refresh 1% Ophth Drops] 1 drops EACHEYE QID PRN #1 ea PRN Reason: Dry Eye Scopolamine Patch [Transderm-Scop] 1 patch TOP Q3D #9 patch Acetaminophen [Tylenol] 160 mg PO Q6H PRN #25 ml PRN Reason: Fever > 100.5 F Weight Bearing: Bedbound Health Concerns: The patient was hospitalized and treated for pneumonia. His underlying dementia and weakness was severe, as he was now bedridden and non-communicative. He was felt to be a candidate for Hospice. He was discharged to his home, to a hospital bed, with a rectal Lori tube in place for giving antianxiety and morphine meds, and will be a Hospice patient in 2 more days. Plan of Treatment: Comfort care is the plan, then end-of-life care on Hospice service. Care Goals: Comfort and dying with dignity are the goals. Assessment: The family is agreeable with the plan. Additional Instructions or Follow Up instructions: If the family has questions, the PCP should be contacted for the next 2 days. After that, he is under Hospice scare, and the Hospice staff should be contacted. No Smoking: If you smoke, Please STOP! Call for help. Follow-up with: DAYANARA FRANCISCO PA-C [Primary Care Provider] -
--- NOTE | 2022-06-25 12:06 | DISCHARGE SUMMARY ---
Discharge Summary Admit Date: 06/19/22 Discharge Date: 06/25/22 Discharging Provider: Dr Sagrario Esparza Primary Care Provider: LIZ Espinoza Code Status: Do Not Attempt Resuscitation Condition at Discharge: Poor Discharge Disposition: 01 Home, Self Care - HPI History of Present Illness: This is a 62 y/o white male. He has vascular dementia and his baseline status is to need prompting with dressing, feeding, and bathing but he can usually do it. He is a little bit of help in the shower but he can usually take care of himself. He walks around the house. Interacts with his family. He is not much of a talker but he does respond appropriately. lives in the same house as he does, and she has MS. Both he and his live with her daughter. A week ago he started developing a raspy cough. Lots of gurgles at the base of his throat. Over the last few days he has had less and less appetite. And in the last 2 days he has become less responsive. Not wanting to get out of bed. He went from being able to feed himself, to having his daughter and son feed him, to now not being able to swallow for them. He is not able to be prompted at all. He is also been incontinent of urine and stool couple of times. Yesterday his breathing got labored so they brought him to the emergency room. His temperature was 38.1 C, blood pressure 104/74, respiration 32. 97% on room air. Heart rate was 131. He is 59.8 kg, and is 5 feet 7 inches tall. He was admitted in November of this year with COVID and was 45 kg. Family has worked very hard at giving him what ever food he wants and his weight is now 59.8 kg. The ER doctor found to be in no acute distress. He appeared very frail. He was alert and following some simple commands. The ER provider states he was oriented x3. He had a supple neck. He was tachycardic. Diminished breath soun ds in the lung garza with poor inspiratory effort but no distress. Abdomen was benign and he had erythema over the left anterior abdominal wall. No leg edema. White cell count was 6.5, hemoglobin 14.6. BUN 23, creatinine 0.9. Glucose 115. Lactic acid 1.6. Liver enzymes normal. He is positive for coronavirus variant and human metapneumovirus because he is not able to give a clear history for himself, he had a chest x-ray with minimal patchy right basilar atelectasis cyst. He also underwent a chest CT, head CT, and abdomen pelvis CT. He had an umbilical hernia that was fat-containing. Nothing acute in the abdomen. The chest has a right lower lobe consolidation. However it was less consolidated when it was compared to the chest CT when he had COVID in November 2021. But in the context of fever that he developed in the ER, pneumonia suspected. He also had upstream peribronchial thickening and suspected mucous plugging. Prominent mediastinal nodes. Follow-up imaging was suggested to document resolution. They did give him antibiotics, and antipyretics hoping he would be able to go home. Heart rate came down into the 70s and 80s. And he remained well saturated on room air but over the course the afternoon he dropped his pressure to 86 systolic. Respiratory rate has remained intermittently elevated. He continues to spike temperatures. The ER staff wanted to admit him to the inpatient side for treatment of community-acquired pneumonia. Case was discussed with the ER provider to make sure the work-up was completed. We discussed his positive viral status. Most likely he has secondary bacterial pneumonia or inhalation pneumonitis from the phlegm that he just could not quite clear. The ER provider did excellent Advance Care Planning conversation with the family. In reading his notes, the son is reiterating almost word for word what was said in the ER. While they are willing for dad to get antibiotics, supportive care with hydration, they do not want central lines, pressors, or transfer to the ICU. Son states that dad really took a hit when he had COVID. It was all he could do to recover from that and then get to the status he has been. He is frailty is become very apparent to them. His CODE status will be DNR. - HOSPITAL COURSE Hospital Course: (1) Community Acquired Pneumonia Empiric antibx were started and treatment was completed. He did not needed suppl O2, and had a slight cough, but was more lethargic every day. He was not taking po meds since he was too obtunded since admission. The son remained at his bedside and communicated the family's wishes. Daughter from [place] arrived and the patient was discharged to eventually begin under Hospice care (2) Metabolic encephalopathy This was felt to be due to infection. But after several days of iv hydration and iv antibx, he had only slightly awoken, opened his eyes, followed voice, was noted to have bilateral hand tremor, but did not move otherwise. Ever since he had Covid several mos ago, son said that he was more muted than usual, then became mute and bedbound. Shaun was to his home to be with his for end-of-life care under Hospice guidance. (2) Vascular dementia He had been on Depakote, Zoloft, and Zyprexa, and the oral ones needed to be stopped, since he aspirated when he tried to swallow. (3) Comfort measures only status Once the daughter arrived, we started Comfort measures. A Lori tube was placed by senior project coordinator to start him on comfort meds while still here. - ALLERGIES Allergies/Adverse Reactions: Allergies Allergy/AdvReac Type Severity Reaction Status Date / Time No Known Drug Allergies Allergy Verified 06/18/22 13:50 - MEDICATIONS Home Medications: Ambulatory Orders Medication Instructions Recorded Confirmed Acetaminophen [Tylenol] 160 mg PO Q6H PRN #25 ml 06/25/22 Carboxymethylcellulose 1% Opht 1 drops EACHEYE QID PRN #1 ea 06/25/22 [Refresh 1% Ophth Drops] LORazepam [Ativan] 0.5 mg PO Q6H PRN #10 tablet 06/25/22 Morphine Oral Soln [Roxanol] 10 mg SC Q2HR PRN #30 ml 06/25/22 Scopolamine Patch [Transderm-Scop] 1 patch TOP Q3D #9 patch 06/25/22 - PHYSICAL EXAM AT DISCHARGE General Appearance: positive: No acute distress, Lethargic, Other (Cachectic) Eyes Bilateral: positive: Normal inspection ENT: positive: Dry mucous membranes Neck: positive: No JVD, Other (Rigid and no movement spontaneous.) Respiratory: positive: No respiratory distress Cardiovascular: positive: Regular rate & rhythm, No murmur Abdomen: positive: Non-tender, No distention Skin: positive: Warm, Dry Extremities: positive: Non-tender, No pedal edema Neurologic/Psychiatric: positive: Other (Rigid except hand tremor, no speech, unable to swallow, rarely opens eyes and follows to voice.) - LABS Result Diagrams: 06/21/22 05:26 12/24/22 05:26 - DIAGNOSTIC IMAGING Diagnostic Imaging Results: Final report reviewed - FOLLOW UP Follow Up: Under Hospice Care in several days. - TIME SPENT Time Spent in Discharge (Minutes): 40
== END 2022-06-25 15:10 | disposition home or self-care (01) | DRG 193 ==
LOC: ED 13:34 → MS2 06-19 11:55
PROVIDERS: ADMIT Specialist; ATTEND Internal Medicine
DX: J18.9 Pneumonia, unspecified organism (principal); R41.82 Altered mental status, unspecified; G93.41 Metabolic encephalopathy; Z20.822 Contact with and (suspected) exposure to COVID-19; F01.C0 Vascular dementia, severe, without behavioral disturbance, psychotic disturbance, mood disturbance, and anxiety; Z51.5 Encounter for palliative care; Z86.16 Personal history of COVID-19; Z66 Do not resuscitate; R00.0 Tachycardia, unspecified; F32.A Depression, unspecified; F17.220 Nicotine dependence, chewing tobacco, uncomplicated; R63.0 Anorexia; Z68.20 Body mass index [BMI] 20.0-20.9, adult; R32 Unspecified urinary incontinence; R15.9 Full incontinence of feces; R13.10 Dysphagia, unspecified; R25.1 Tremor, unspecified; B97.29 Other coronavirus as the cause of diseases classified elsewhere; I69.319 Unspecified symptoms and signs involving cognitive functions following cerebral infarction
CPT/HCPCS: 36415; 51701; 70450; 71045; 71260; 74177; 80048; 80053; 81001; 83605; 83690; 85025; 87040; 87633; 93005; 96361; 96365; 96366; 96367; 97163; 97166; 99284; 99285; A9270; J0131; J2060; J3490; J8499; Q9967; 81003; 87086

== ENCOUNTER 2022-06-25 15:17 | Outpatient (CLI) | payer MEDICARE | END 2022-06-25 15:18 | disposition hospice, home (50) | LOC: EMS 15:17 | PROVIDERS: ATTEND Internal Medicine | DX: Z51.5 Encounter for palliative care (principal); F03.90 Unspecified dementia, unspecified severity, without behavioral disturbance, psychotic disturbance, mood disturbance, and anxiety; R62.7 Adult failure to thrive; Z74.01 Bed confinement status | CPT/HCPCS: A0425; A0428 ==